=== PATIENT | male | born 1960 | race African-American/Black ===

== ENCOUNTER 2017-10-18 18:16 | Inpatient (IN) | payer OTHER ==
[~2017-10-18] VITALS: Ht 190.5 cm; Wt 98.2 kg
--- NOTE | 2017-10-18 18:56 | DIAGNOSTIC IMAGING REPORT ---
CHEST ONE VIEW PORTABLE HISTORY: 56 years-old Male CHEST PAIN acute atypical chest pain COMPARISON: None available TECHNIQUE: Portable AP view of the chest FINDINGS: Cardiomediastinal and hilar silhouettes are within normal limits. No pneumothorax, pleural effusion or overt pulmonary edema. Linear subsegmental bibasilar opacities are noted. The bones of the chest appear grossly intact. Degenerative changes are noted within the shoulders and spine. IMPRESSION: Linear subsegmental bibasilar opacities suggest atelectasis. The above report was generated using voice recognition software. It may contain grammatical, syntax or spelling errors. Electronically signed by: Daniel Concepcion M.D. 10/18/2017 6:55 PM Dictated Date/Time: 10/18/2017 6:54 PM
[2017-10-18] MEDS ORDERED: GI COCKTAIL PO STA (19:01)
[2017-10-18] MEDS ORDERED: SODIUM CHLORIDE 0.9% 1000ML 1,000 ML IV STA ×2 (19:01→20:09)
[2017-10-18 19:06] LABS: BASO % 0.5 %; BASO ABS # 0.05 K/uL (0-0.2); EOS % 0.3 %; EOS ABS # 0.03 K/uL (0-0.5); HEMATOCRIT 37.2 % (42-52); HEMOGLOBIN 13.3 g/dL (14.0-18.0); IG# 0.03 K/uL (0.00-0.02); LYMPH % 10.8 %; MEAN CELL VOLUME 86.7 fL (80-100); MEAN CORPUSCULAR HGB CONC 35.8 g/dl (32-36); MEAN PLATELET VOLUME 10.4 fL (7.4-10.4); MONO ABS # 0.41 K/uL (0.11-0.59); NEUT % 84.1 %; NEUT ABS # 8.61 K/uL (1.4-6.5); PLATELET COUNT 210 K/uL (130-400); RED CELL DISTRIBUTION WIDTH CV 14.2 % (11.5-14.5); RED CELL DISTRIBUTION WIDTH SD 44.7 fL (36.4-46.3); WHITE BLOOD COUNT 10.23 K/uL (4.8-10.8)
--- NOTE | 2017-10-18 19:06 | EMERGENCY ROOM VISIT NOTE ---
History Report prepared by Manoj: Chris Huffman Under the Supervision of: Dr. Patrick Snowden M.D. First contact with patient: 18:25 Chief Complaint: CHEST PAIN Stated Complaint: CHEST PAIN Nursing Triage Summary: pt states substernal chest pain with mid abdomen pain x 6 hours, pt denies cardiac hx at this time, pt states pain radiates to left shoulder. Pt denies asa and nitro helped with pain. History of Present Illness The patient is a 56 year old male who presents to the Emergency Room with complaints of persistent upper chest pain that radiates into the left side for the past 6 hours. He notes that the pain is a 5-6/10 in severity, and he describes it as a dull pressure. He notes that nothing has relived the pain including aspiring and nitro, and nothing makes the pain any better. He states that the pain is worse than his normal GERD. The patient is also complaining of left arm numbness that is intermittent and goes into his shoulder. He reports that he has been nauseous with a fever and chills, and he had diarrhea around 1600. He feels short of breath because he is unable to breathe due to the pressure in his chest. The patient has a history of hypertension, diabetes, migraines, and latent TB. He also has a family history of hypertension, diabetes , and his sister has had a heart attack. The patient denies any sick contacts. He denies any cough, congestion, and pain with urination. Source of History: patient Onset: 6 hours ago Position: chest (upper into the left) Symptom Intensity: 5-6/10 Quality: pressure, dull Timing: other (persistent) Associated Symptoms: + fevers, + chills, + SOB, + nausea, + diarrhea, No cough Note: Associated symptoms: Left arm numbness Review of Systems See HPI for pertinent positives and negatives. A total of ten systems were reviewed and were otherwise negative. Past Medical & Surgical Medical Problems: (1) Chest pain (2) DM (diabetes mellitus) (3) HTN (hypertension) (4) Migraine (5) Troponin I above reference range Family History Diabetes mellitus FH: NE (myocardial infarction) Hypertension Social History Smoking Status: Current Every Day Smoker Housing Status: other (intermediate) Occupation Status: other (prisoner) Current/Historical Medications Scheduled Isoniazid (Isoniazid), 900 MG PO 2XWK Lisinopril (Zestril), 10 MG PO DAILY Pyridoxine Hcl (Vitamin B 6), 150 MG PO 2XWK Allergies Coded Allergies: No Known Allergies (Unverified , 10/18/17) Physical Exam Vital Signs Date Time Temp Pulse Resp B/P (MAP) Pulse Ox O2 Delivery O2 Flow Rate FiO2 10/18/17 19:06 71 18 139/93 98 Room Air 10/18/17 18:20 Room Air 10/18/17 18:18 79 10/18/17 18:15 98 Room Air 10/18/17 18:15 37.0 58 23 135/93 98 Room Air Physical Exam GENERAL: Awake, alert, fatigued and uncomfortable appearing, in no distress HENT: Normocephalic, atraumatic. Oropharynx unremarkable. Dry mucous membranes. EYES: Normal conjunctiva. Sclera non-icteric. NECK: Supple. No nuchal rigidity. FROM. No JVD. RESPIRATORY: Clear to auscultation. CARDIAC: Regular rate, normal rhythm. Extremities warm and well perfused. Pulses equal. ABDOMEN: Soft, non-distended. No tenderness to palpation. No rebound or guarding. No masses. RECTAL: Deferred. MUSCULOSKELETAL: Chest examination reveals no tenderness. The back is symmetrical on inspection without obvious abnormality. There is no CVA tenderness to palpation. No joint edema. LOWER EXTREMITIES: Calves are equal size bilaterally and non-tender. No edema. No discoloration. NEURO: Normal sensorium. No sensory or motor deficits noted. SKIN: No rash or jaundice noted. Medical Decision & Procedures ER Provider Diagnostic Interpretation: Radiology results as stated below per my review and radiologist interpretation: CHEST ONE VIEW PORTABLE HISTORY: 56 years-old Male CHEST PAIN acute atypical chest pain COMPARISON: None available TECHNIQUE: Portable AP view of the chest FINDINGS: Cardiomediastinal and hilar silhouettes are within normal limits. No pneumothorax, pleural effusion or overt pulmonary edema. Linear subsegmental bibasilar opacities are noted. The bones of the chest appear grossly intact. Degenerative changes are noted within the shoulders and spine. IMPRESSION: Linear subsegmental bibasilar opacities suggest atelectasis. The above report was generated using voice recognition software. It may contain grammatical, syntax or spelling errors. Electronically signed by: Daniel Concepcion M.D. 10/18/2017 6:55 PM Dictated Date/Time: 10/18/2017 6:54 PM Laboratory Results 10/18/17 18:55 Red Blood Count 4.29, Mean Corpuscular Volume 86.7, Mean Corpuscular Hemoglobin 31.0, Mean Corpuscular Hemoglobin Concent 35.8, Mean Platelet Volume 10.4, Neutrophils (%) (Auto) 84.1, Lymphocytes (%) (Auto) 10.8, Monocytes (%) (Auto) 4.0, Eosinophils (%) (Auto) 0.3, Basophils (%) (Auto) 0.5, Neutrophils # (Auto) 8.61, Lymphocytes # (Auto) 1.10, Monocytes # (Auto) 0.41, Eosinophils # (Auto) 0.03, Basophils # (Auto) 0.05 10/18/17 18:55 Test 10/18/17 18:55 10/18/17 19:15 White Blood Count 10.23 K/uL (4.8-10.8) Red Blood Count 4.29 M/uL (4.7-6.1) Hemoglobin 13.3 g/dL (14.0-18.0) Hematocrit 37.2 % (42-52) Mean Corpuscular Volume 86.7 fL (80-100) Mean Corpuscular Hemoglobin 31.0 pg (25-34) Mean Corpuscular Hemoglobin Concent 35.8 g/dl (32-36) Platelet Count 210 K/uL (130-400) Mean Platelet Volume 10.4 fL (7.4-10.4) Neutrophils (%) (Auto) 84.1 % Lymphocytes (%) (Auto) 10.8 % Monocytes (%) (Auto) 4.0 % Eosinophils (%) (Auto) 0.3 % Basophils (%) (Auto) 0.5 % Neutrophils # (Auto) 8.61 K/uL (1.4-6.5) Lymphocytes # (Auto) 1.10 K/uL (1.2-3.4) Monocytes # (Auto) 0.41 K/uL (0.11-0.59) Eosinophils # (Auto) 0.03 K/uL (0-0.5) Basophils # (Auto) 0.05 K/uL (0-0.2) RDW Standard Deviation 44.7 fL (36.4-46.3) RDW Coefficient of Variation 14.2 % (11.5-14.5) Immature Granulocyte % (Auto) 0.3 % Immature Granulocyte # (Auto) 0.03 K/uL (0.00-0.02) Prothrombin Time 10.0 SECONDS (9.0-12.0) Prothromb Time International Ratio 1.0 (0.9-1.1) Activated Partial Thromboplast Time 29.5 SECONDS (21.0-31.0) Partial Thromboplastin Ratio 1.1 Anion Gap 5.0 mmol/L (3-11) Est Creatinine Clear Calc Drug Dose 87.8 ml/min Estimated GFR () 83.2 Estimated GFR (Non- 71.7 BUN/Creatinine Ratio 11.2 (10-20) Calcium Level 8.6 mg/dl (8.5-10.1) Magnesium Level 2.0 mg/dl (1.8-2.4) Total Bilirubin 0.1 mg/dl (0.2-1) Direct Bilirubin < 0.1 mg/dl (0-0.2) Aspartate Amino Transf (AST/SGOT) 12 U/L (15-37) Alanine Aminotransferase (ALT/SGPT) 20 U/L (12-78) Alkaline Phosphatase 72 U/L (45-117) Total Protein 7.5 gm/dl (6.4-8.2) Albumin 3.4 gm/dl (3.4-5.0) Lipase 89 U/L (73-393) Influenza Type A Antigen Neg for Influ A (NEG) Influenza Type B Antigen Neg for Influ B (NEG) Laboratory results reviewed by me Medications Administered Medications (Trade) Dose Ordered Sig/Jaime Route Start Time Stop Time Status Last Admin Dose Admin Sodium Chloride 1,000 ml @ 999 mls/hr Q1H1M STAT IV 10/18/17 19:01 10/18/17 20:01 DC 10/18/17 19:11 999 MLS/HR Famotidine (Pepcid Tab) 20 mg NOW ONCE PO 10/18/17 19:15 10/18/17 19:16 DC 10/18/17 19:11 20 MG Miscellaneous Medication (Gi Cocktail) 24 ml NOW STAT PO 10/18/17 19:01 10/18/17 19:03 DC 10/18/17 19:01 24 ML Aspirin (Aspirin Chew) 324 mg NOW STAT PO 10/18/17 20:09 10/18/17 20:10 DC 10/18/17 20:18 324 MG ECG Per My Interpretation Indication: chest pain Rate (beats per minute): 65 Rhythm: normal sinus Findings: no acute ischemic change, other (Normal axis) ED Course 1844: The patient was evaluated in room C10. A complete history and physical exam was performed. 2000: I revaluated the patient, and he was feeling better. I discussed the treatment plan with him, and he was agreeable. 2023: I discussed the patient with Dr. Barra[place] [facility] [place] he will evaluate the patient for further treatment. Medical Decision I reviewed the patient's past medical history, medications, and the nursing notes as described above. Differential diagnosis: Etiologies such as cardiac ischemia, aortic dissection, pulmonary embolism, pneumonia, pneumothorax, musculoskeletal, infections, pericarditis, myocarditis , esophageal rupture, gastrointestinal, as well as others were entertained. The patient is a 56-year-old gentleman currently an inmate with pmhx of HTN who presents emergency department with 6 hours of substernal chest pain, diaphoresis per hpi. On arrival patient is uncomfortable but no acute distress , afebrile stable vital signs. Of note, ?h/o latent TB. Patient reports h/o + PPD but then had negative CXR and was told he did not have TB. Patient was placed on droplet precaution until CXR complete and was clear. Patient's EKG is unremarkable without signs of acute ischemia. Initial troponin marginally elevated to 0.08 approximately 6 hours after onset of symptoms. Patient feeling complete resolution of symptoms after receiving Pepcid, GI cocktail, IV fluids which is reassuring. However, given the patient's positive troponin, in the setting of a family history and multiple cardiac risk factors including high blood pressure and smoking, the patient's heart score is 5, moderate risk, thus admission for r/o is reasonable, particularly considering the patient has no prior history of cardiac evaluations. Patient given ASA. Will defer heparin at this time and trend troponin. [facility] [place] Dr. Madi hodgson, who will evaluate the patient for admission. Medication Reconcilliation Current Medication List: was personally reviewed by me Blood Pressure Screening Patient's blood pressure: Normal blood pressure Consults Time Called: 2001 Consulting Physician: Dr. Barraza Returned Call: 2023 I discussed the patient with Dr. Barraza - [facility] [place] - he will evaluate the patient for further treatment. Impression Primary Impression: Elevated troponin Additional Impression: Substernal precordial chest pain Scribe Attestation The scribe's documentation has been prepared under my direction and personally reviewed by me in its entirety. I confirm that the note above accurately reflects all work, treatment, procedures, and medical decision making performed by me. Departure Information Dispostion Being Evaluated By Hospitalist Referrals Loretta VALENZUELA (PCP) Patient Instructions My [facility] Problem Qualifiers
[2017-10-18] MEDS ORDERED: LIDOCAINE HCL 2% VISC SOLN 20 ML UDC ONE (19:10)
[2017-10-18] MEDS ORDERED: ALUMINUM/MAGNESIUM SUSP 30 ML UDC ONE (19:10)
[2017-10-18] MEDS ORDERED: FAMOTIDINE 20 MG TAB PO ONE (19:15)
[2017-10-18 19:25] LABS: ALBUMIN 3.4 gm/dl (3.4-5.0); ALT/SGPT 20 U/L (12-78); BLOOD UREA NITROGEN 13 mg/dl (7-18); CALCIUM 8.6 mg/dl (8.5-10.1); CARBON DIOXIDE 26 mmol/L (21-32); CREATININE 1.15 mg/dl (0.60-1.40); GLUCOSE 177 mg/dl (70-99); LIPASE 89 U/L (73-393); POTASSIUM 4.2 mmol/L (3.5-5.1); SODIUM 135 mmol/L (136-145)
[2017-10-18 19:38] LABS: ALKALINE PHOSPHATASE 72 U/L (45-117); AST/SGOT 12 U/L (15-37); TOTAL PROTEIN 7.5 gm/dl (6.4-8.2)
[2017-10-18] MEDS ORDERED: ASPIRIN 81 MG CHEW PO STA (20:09)
[2017-10-18] MEDS ORDERED: ALUMINUM/MAGNESIUM/SIMETH (MAALOX MAX) 30 ML UDC PO PRN (20:15)
[2017-10-18] MEDS ORDERED: MoRPHine SULFATE 2 MG/ML CARP IV PRN (20:15)
[2017-10-18] MEDS ORDERED: POLYETHYLENE (MIRALAX) 17 GM PACK PO PRN (20:15)
[2017-10-18] MEDS ORDERED: MAGNESIUM HYDROXIDE SUSP 30 ML UDC PO PRN (20:15)
[2017-10-18] MEDS ORDERED: NITROGLYCERIN 0.4 MG SL PER TAB CHARGE SL PRN (20:15)
[2017-10-18] MEDS ORDERED: ACETAMINOPHEN 325 MG TAB PO PRN (20:15)
[2017-10-18] MEDS ORDERED: ONDANSETRON INJ 2 MG/ML 2 ML VIAL IV PRN (20:15)
[2017-10-18 20:25] LABS: INFLUENZA B ANTIGEN Neg for Influ B (NEG)
[2017-10-18] MEDS ORDERED: PYRI50TA77 PO (20:27)
[2017-10-18] MEDS ORDERED: ISON300T4 PO (20:27)
[2017-10-18] MEDS ORDERED: LISI-461 PO (20:27)
[2017-10-18 20:45] LABS: PTT PATIENT 29.5 SECONDS (21.0-31.0)
--- NOTE | 2017-10-18 20:51 | History and Physical ---
History & Physical Date & Time of Service: Oct 18, 2017 at 20:36 Chief Complaint: Chest Pain Primary Care Physician: Loretta VALENZUELA History of Present Illness Source: patient 56 y/o M Hx HTN, latent TB. Pt developed central CP radiating into his neck and L shoulder, accompanied by nausea, vomiting, SOB and diaphoresis. He resides in a local incarceration facility and was brought to the ER a few hours following onset of symptoms as his CP persisted. Initial labs are notable for a marginally elevated troponin. He is CP-free at the time of admission. The pt was diagnosed with latent TB 07/05 and was prescribed Isoniazid which he continues to comply with. Past Medical/Surgical History 1) HTN 2) (+) PPD 07/05 3) Smoker Family History Diabetes mellitus FH: PA (myocardial infarction) Hypertension Father is alive and well Mother due to breast CA Social History Smokes 10 cigarettes daily Smoking Status: Current Every Day Smoker Occupational Status: other (prisoner) Allergies Coded Allergies: No Known Allergies (Unverified , 10/18/17) Home Medications Scheduled Isoniazid (Isoniazid), 900 MG PO 2XWK Lisinopril (Zestril), 10 MG PO DAILY Pyridoxine Hcl (Vitamin B 6), 150 MG PO 2XWK Review of Systems Constitutional: + sweats, No fever, No chills Eyes: No worsening of vision ENT: No hearing loss, No unusual epistaxis, No nasal symptoms Respiratory: + shortness of breath, + dyspnea on exertion, + dyspnea at rest, No cough, No sputum, No wheezing Cardiovascular: + chest pain Abdomen: No pain, No nausea, No vomiting Musculoskeletal: No joint pain Genitourinary - Male: No hematuria, No dysuria Neurologic: No memory loss, No paralysis, No weakness Psychiatric: No depression symptoms Endocrine: No fatigue Hematologic / Lymphatic: No abnormal bleeding/bruising Integumentary: No rash Allergic / Immunologic: No environmental allergies Physical Exam Vital Signs Date Time Temp Pulse Resp B/P (MAP) Pulse Ox O2 Delivery O2 Flow Rate FiO2 10/18/17 19:06 71 18 139/93 98 Room Air 10/18/17 18:20 Room Air 10/18/17 18:18 79 10/18/17 18:15 98 Room Air 10/18/17 18:15 37.0 58 23 135/93 98 Room Air General Appearance: WD/WN, no apparent distress Head: normocephalic Eyes: normal inspection ENT: normal ENT inspection, pharynx normal Neck: supple, no JVD Respiratory/Chest: chest non-tender, lungs clear Cardiovascular: regular rate, rhythm, no edema, no gallop, + pertinent finding (an S2 click is heard) Abdomen/GI: normal bowel sounds, non tender, soft Back: normal inspection, no CVA tenderness Extremities/Musculoskelatal: normal inspection, no calf tenderness, normal capillary refill Neurologic/Psych: security flex officer II-XII nml as tested, no motor/sensory deficits, alert, oriented x 3 Skin: normal color Diagnostics Laboratory Results Results Past 24 Hours Test 10/18/17 18:55 10/18/17 19:15 Range/Units White Blood Count 10.23 4.8-10.8 K/uL Red Blood Count 4.29 4.7-6.1 M/uL Hemoglobin 13.3 14.0-18.0 g/dL Hematocrit 37.2 42-52 % Mean Corpuscular Volume 86.7 80-100 fL Mean Corpuscular Hemoglobin 31.0 25-34 pg Mean Corpuscular Hemoglobin Concent 35.8 32-36 g/dl Platelet Count 210 130-400 K/uL Mean Platelet Volume 10.4 7.4-10.4 fL Neutrophils (%) (Auto) 84.1 % Lymphocytes (%) (Auto) 10.8 % Monocytes (%) (Auto) 4.0 % Eosinophils (%) (Auto) 0.3 % Basophils (%) (Auto) 0.5 % Neutrophils # (Auto) 8.61 1.4-6.5 K/uL Lymphocytes # (Auto) 1.10 1.2-3.4 K/uL Monocytes # (Auto) 0.41 0.11-0.59 K/uL Eosinophils # (Auto) 0.03 0-0.5 K/uL Basophils # (Auto) 0.05 0-0.2 K/uL RDW Standard Deviation 44.7 36.4-46.3 fL RDW Coefficient of Variation 14.2 11.5-14.5 % Immature Granulocyte % (Auto) 0.3 % Immature Granulocyte # (Auto) 0.03 0.00-0.02 K/uL Sodium Level 135 136-145 mmol/L Potassium Level 4.2 3.5-5.1 mmol/L Chloride Level 105 98-107 mmol/L Carbon Dioxide Level 26 21-32 mmol/L Anion Gap 5.0 3-11 mmol/L Blood Urea Nitrogen 13 7-18 mg/dl Creatinine 1.15 0.60-1.40 mg/dl Est Creatinine Clear Calc Drug Dose 87.8 ml/min Estimated GFR () 83.2 Estimated GFR (Non- 71.7 BUN/Creatinine Ratio 11.2 10-20 Random Glucose 177 70-99 mg/dl Calcium Level 8.6 8.5-10.1 mg/dl Magnesium Level 2.0 1.8-2.4 mg/dl Total Bilirubin 0.1 0.2-1 mg/dl Direct Bilirubin < 0.1 0-0.2 mg/dl Aspartate Amino Transf (AST/SGOT) 12 15-37 U/L Alanine Aminotransferase (ALT/SGPT) 20 12-78 U/L Alkaline Phosphatase 72 45-117 U/L Troponin I 0.089 0-0.045 ng/ml Total Protein 7.5 6.4-8.2 gm/dl Albumin 3.4 3.4-5.0 gm/dl Lipase 89 73-393 U/L Influenza Type A Antigen Neg for Influ A NEG Influenza Type B Antigen Neg for Influ B NEG Diagnostic Radiology CXR: Linear subsegmental bibasilar opacities suggest atelectasis. Normal EKG Impression Assessment and Plan 56 y/o M Hx HTN, latent TB. Pt developed central CP radiating into his neck and L shoulder, accompanied by nausea, vomiting, SOB and diaphoresis. He resides in a local incarceration facility and was brought to the ER a few hours following onset of symptoms as his CP persisted. Initial labs are notable for a marginally elevated troponin. He is CP-free at the time of admission. The pt was diagnosed with latent TB 07/05 and was prescribed Isoniazid which he continues to comply with. 1) CP - elevated trop - placed on full-dose Heparin, ASA, Statin - HR would not likely tolerate a Bblocker. An echo and cardio consult are scheduled for AM 2) Latent TB - cont Isoniazid, B6 3) Mild anemia - may be due to latent TB or treatment - normocytic without evidence of bleeding - we will guiac a stool sample and trend Hb while he receives Heparin - additional workup can be completed as an outpt 4) Hyperglycemia - A1c pending 5) Smoker - does not display a great degree of enthusiasm regarding cessation at present. Full code - Heparin prophylaxis total time for this admit including review of labs, meds, imaging, records - discussion with pt and ER attending - 33 min Resuscitation Status VTE Prophylaxis Will order VTE Prophylaxis: Yes
[2017-10-18] MEDS ORDERED: HEPARIN SOD (PORCINE) 1000 UNIT/ML 10 ML VIAL ONE (20:54)
[2017-10-18] MEDS ORDERED: HEPARIN 25000 UNIT/500 ML D5W ONE (20:54)
[2017-10-18] MEDS: HEPARIN 25,000 UNIT/500ML D5W 500 ML IV PRN ×2 (21:18→21:44)
[2017-10-18] MEDS ORDERED: IV FLUIDS COMPLETED PRN (21:30)
[2017-10-18 21:47] VITALS: BP 154/82; PULSE 70; TEMP 37.1; O2SAT 100; BMI 27.9
[2017-10-18] MEDS ORDERED: SODIUM CHLORIDE 0.9% 1000ML 1,000 ML IV SCH (22:00)
[2017-10-18] MEDS ORDERED: NITROGLYCERIN 2% OINTMENT 30GM TUBE EXT SCH (22:30)
[2017-10-18] MEDS: ATORVASTATIN 40 MG TAB PO SCH (23:39)
[2017-10-19] VITALS (18 sets, daily range): BP systolic 102–149; BP diastolic 54–99; PULSE 52–79; TEMP 36.6–36.8; O2SAT 91–100; Ht 190.5 cm; Wt 98.2 kg
[2017-10-19 05:55] LABS: HEMATOCRIT 35.6 % (42-52); HEMOGLOBIN 12.6 g/dL (14.0-18.0); MEAN CELL VOLUME 86.4 fL (80-100); MEAN CORPUSCULAR HEMOGLOBIN 30.6 pg (25-34); MEAN CORPUSCULAR HGB CONC 35.4 g/dl (32-36); MEAN PLATELET VOLUME 10.2 fL (7.4-10.4); PLATELET COUNT 200 K/uL (130-400); RED CELL DISTRIBUTION WIDTH CV 14.1 % (11.5-14.5); RED CELL DISTRIBUTION WIDTH SD 44.4 fL (36.4-46.3); WHITE BLOOD COUNT 7.11 K/uL (4.8-10.8)
[2017-10-19 06:20] LABS: PTT PATIENT 80.5 SECONDS (21.0-31.0)
[2017-10-19] MEDS: LISINOPRIL 10 MG TAB PO SCH (08:28)
--- NOTE | 2017-10-19 08:32 | Family Medicine Progress Note ---
Progress Note Date of Service Oct 19, 2017. Subjective Pt evaluation today including: conversation w/ patient, physical exam, chart review, lab review, review of studies, conversation w/ [facility] consultant, review of inpatient medication list Patient lying comfortable, no current complaints of any discomfort, denies acute overnight events. He denies fevers/chills, headaches, CP, palpitations, dyspnea, abdominal pain, lower extremity swelling or rashes. ROS is unremarkable except as noted above. Objective Vital Signs Date Time Temp Pulse Resp B/P (MAP) Pulse Ox O2 Delivery O2 Flow Rate FiO2 10/19/17 04:12 100 Room Air 10/19/17 03:04 36.7 79 18 149/80 (103) 97 Room Air 10/19/17 00:00 100 Room Air 10/18/17 21:47 37.1 70 18 154/82 100 Room Air 10/18/17 20:52 60 18 158/95 97 Room Air 10/18/17 19:06 71 18 139/93 98 Room Air 10/18/17 18:20 Room Air 10/18/17 18:18 79 10/18/17 18:15 98 Room Air 10/18/17 18:15 37.0 58 23 135/93 98 Room Air Physical Exam General Appearance: WD/WN, no apparent distress Eyes: normal inspection ENT: hearing grossly normal Neck: supple, no JVD Respiratory/Chest: chest non-tender, lungs clear, normal breath sounds, no respiratory distress, no accessory muscle use Cardiovascular: regular rate, rhythm, no edema, no murmur Abdomen: normal bowel sounds, non tender, soft Extremities: no pedal edema, no calf tenderness, + pertinent finding ( significant clubbing of fingers and toes) Neurologic/Psychiatric: alert, normal mood/affect, oriented x 3 Skin: normal color, warm/dry, no rash Laboratory Results Results Past 24 Hours Test 10/18/17 18:55 10/18/17 19:15 10/18/17 22:53 10/19/17 05:43 Range/Units White Blood Count 10.23 7.11 4.8-10.8 K/uL Red Blood Count 4.29 4.12 4.7-6.1 M/uL Hemoglobin 13.3 12.6 14.0-18.0 g/dL Hematocrit 37.2 35.6 42-52 % Mean Corpuscular Volume 86.7 86.4 80-100 fL Mean Corpuscular Hemoglobin 31.0 30.6 25-34 pg Mean Corpuscular Hemoglobin Concent 35.8 35.4 32-36 g/dl Platelet Count 210 200 130-400 K/uL Mean Platelet Volume 10.4 10.2 7.4-10.4 fL Neutrophils (%) (Auto) 84.1 % Lymphocytes (%) (Auto) 10.8 % Monocytes (%) (Auto) 4.0 % Eosinophils (%) (Auto) 0.3 % Basophils (%) (Auto) 0.5 % Neutrophils # (Auto) 8.61 1.4-6.5 K/uL Lymphocytes # (Auto) 1.10 1.2-3.4 K/uL Monocytes # (Auto) 0.41 0.11-0.59 K/uL Eosinophils # (Auto) 0.03 0-0.5 K/uL Basophils # (Auto) 0.05 0-0.2 K/uL RDW Standard Deviation 44.7 44.4 36.4-46.3 fL RDW Coefficient of Variation 14.2 14.1 11.5-14.5 % Immature Granulocyte % (Auto) 0.3 % Immature Granulocyte # (Auto) 0.03 0.00-0.02 K/uL Prothrombin Time 10.0 9.0-12.0 SECONDS Prothromb Time International Ratio 1.0 0.9-1.1 Activated Partial Thromboplast Time 29.5 80.5 21.0-31.0 SECONDS Partial Thromboplastin Ratio 1.1 3.1 Sodium Level 135 136-145 mmol/L Potassium Level 4.2 3.5-5.1 mmol/L Chloride Level 105 98-107 mmol/L Carbon Dioxide Level 26 21-32 mmol/L Anion Gap 5.0 3-11 mmol/L Blood Urea Nitrogen 13 7-18 mg/dl Creatinine 1.15 0.60-1.40 mg/dl Est Creatinine Clear Calc Drug Dose 87.8 ml/min Estimated GFR () 83.2 Estimated GFR (Non- 71.7 BUN/Creatinine Ratio 11.2 10-20 Random Glucose 177 70-99 mg/dl Calcium Level 8.6 8.5-10.1 mg/dl Magnesium Level 2.0 1.8-2.4 mg/dl Total Bilirubin 0.1 0.2-1 mg/dl Direct Bilirubin < 0.1 0-0.2 mg/dl Aspartate Amino Transf (AST/SGOT) 12 15-37 U/L Alanine Aminotransferase (ALT/SGPT) 20 12-78 U/L Alkaline Phosphatase 72 45-117 U/L Troponin I 0.089 2.290 13.300 0-0.045 ng/ml Total Protein 7.5 6.4-8.2 gm/dl Albumin 3.4 3.4-5.0 gm/dl Lipase 89 73-393 U/L Influenza Type A Antigen Neg for Influ A NEG Influenza Type B Antigen Neg for Influ B NEG Estimated Average Glucose 126 mg/dl Hemoglobin A1c 6.0 4.5-5.6 % Triglycerides Level 70 0-150 mg/dl Cholesterol Level 149 0-200 mg/dl HDL Cholesterol 31 mg/dl LDL Cholesterol, Calculated 104 mg/dl VLDL Cholesterol, Calculated 14 mg/dl Cholesterol/HDL Ratio 4.8 Test 10/19/17 12:10 10/19/17 17:20 Range/Units Activated Partial Thromboplast Time 57.8 21.0-31.0 SECONDS Partial Thromboplastin Ratio 2.2 Microbiology Results 10/18/17 MRSA DNA Surveillance Screen - Final, Complete Specimen Negative for MRSA by DNA Probe Assessment and Plan 56 y/o M Hx HTN, latent TB admitted with central chest pain radiating into his neck and L shoulder, accompanied by nausea, vomiting, SOB and diaphoresis and marginally elevated troponin. Chest pain with elevated troponin - Troponin continues to increase 13.3 at last check, patient currently asymptomatic with no new EKG changes. Cardiology consulted, recs appreciated. Echo shows mild concentric left ventricular hypertrophy, with EF = 50-55%. Hypokinesis of mid to distal anterior and mid to distal anterolateral valdez and apical inferolateral valdez. Elevated right atrial pressure of 15 mmHg. Normal Left atrial pressures. Normal PA pressures at 30 mm/hg. HbA1c 6.0. Fasting lipid panel acceptable. - Continue aspirin, atorvastatin. HR will not tolerate beta blockade - Continue heparin drip - Cardiac catheterization on Saturday, make patient NPO Saturday at midnight - EKG PRN chest pain - Nitro paste if chest discomfort or elevated BP - Continue to monitor in telemetry Latent TB - diagnosed 06/2017 - Continue isoniazid and B6 supplementation Mild anemia - may be due to latent TB or treatment - normocytic without evidence of bleeding - Anemia work up including guiac stool test ordered - Trend H/H especially while on Heparin Smoker - does not display a great degree of enthusiasm regarding cessation at present. Tobacco abuse - cessation encouraged - Nicotine patch ordered Full code Continued [facility] stay due to: multiple IV medications needed Discharge planning: other (jail) Resident Tracking Resident Involvement: Resident Care Provided Care Provided: Adult Hospital Medicine History Resident Physician Supervision Note: I was present with Dr. Joseph during the history and exam. I discussed the case with the resident and agree with the findings and plan as documented in the note. Any exceptions or clarifications are listed here. Pt resting comfortably in bed without complaint of chest pain or shortness of breath. Nitro remains on chest from admission. S1/S2 nl RRR, CTAB. Echo w/ wall motion abnormalities, troponin to 13 this AM. Per cardiology recommendation, would benefit from cath on Saturday and medical management w/ heparin drip. Can re -apply nitro paste or plavix load with pain if needed.
[2017-10-19] MEDS ORDERED: PYRIDOXINE HCL 50 MG TAB PO SCH (09:00)
[2017-10-19] MEDS ORDERED: ISONIAZID 300 MG TAB PO SCH (09:00)
--- NOTE | 2017-10-19 10:20 | ECHOCARDIOGRAM REPORT ---
*NOTICE TO RECEIVING CONSTITUTION PARTY AGENCY This information is strictly Confidential and protected under [place] law. [place] law prohibits you from making any further disclosure of this information unless further disclosure is expressly permitted by the written consent of the person to whom it pertains or is authorized by law. A general authorization for the release of medical or other information is not sufficient for this purpose. Hospital accepts no responsibility if the information is made available to any other person, INCLUDING THE PATIENT. Interpretation Summary * Name: ASHELY THOMAS [id number] Study Date: 10/19/2017 06:47 AM BP: 149/80 mmHg * Patient Location: [facility] HR: 79 * : 1960 (M/d/yyyy) Gender: Male Height: 75 in * Age: 56 yrs Ethnicity: AA Weight: 222 lb * Ordering Physician: Jeff Barraza * Referring Physician: No Doctor, Assigned * Performed By: Amrita Bearden RDCS * * Reason For Study: Chest Pain, Elevated Troponins * BSA: 2.3 m2 * -- Conclusions -- * The left ventricle is normal in size. * There is mild concentric left ventricular hypertrophy. * Left ventricular systolic function is mildly reduced. * Ejection Fraction = 50-55%. * The mid to distal anterior and mid to distal anterolateral valdez and apical inferolateral valdez are hypokinetic. * The right ventricle is normal in size and function. * The right ventricular systolic function is normal as assessed by tricuspid annular plane systolic excursion (TAPSE) (normal >1.5 cm). * Dilated inferior vena cava with reduced collapsability with sniff indicates an elevated right atrial pressure of 15 mmHg * normal Left atrial pressures. * Normal PA pressures at 30 mm/hg Procedure Details * A complete two-dimensional transthoracic echocardiogram was performed (2D, M-mode, Doppler and color flow Doppler). Left Ventricle * The left ventricle is normal in size. * There is mild concentric left ventricular hypertrophy. * Ejection Fraction = 50-55%. * Left ventricular systolic function is mildly reduced. * The mid to distal anterior and mid to distal anterolateral valdez and apical inferolateral valdez are hypokinetic. Right Ventricle * The right ventricle is normal in size and function. * The right ventricular systolic function is normal as assessed by tricuspid annular plane systolic excursion (TAPSE) (normal >1.5 cm). Atria * The left atrial size is normal. * Right atrial size is normal. Mitral Valve * The mitral valve is grossly normal. * There is trace mitral regurgitation. Tricuspid Valve * The tricuspid valve is not well visualized, but is grossly normal. * There is trace tricuspid regurgitation. * Normal PA pressures at 30 mm/hg Aortic Valve * The aortic valve is trileaflet. Pulmonic Valve * The pulmonic valve is not well seen, but is grossly normal. * Trace pulmonic valvular regurgitation. Great Vessels * Mild aortic root dilatation. Pericardium/Pleural * There is no pericardial effusion. Great Vessels * Dilated inferior vena cava with reduced collapsability with sniff indicates an elevated right atrial pressure of 15 mmHg Left Ventricular Diastolic Function * normal Left atrial pressures. MMode 2D Measurements and Calculations IVSd 1.4 cm IVSs 1.4 cm LVIDd 5.1 cm LVIDs 3.8 cm LVPWd 1.2 cm LVPWs 1.5 cm IVS/LVPW 1.1 FS 25.9 % EDV(Teich) 126.2 ml ESV(Teich) 62.3 ml EF(Teich) 50.7 % EDV(cubed) 135.9 ml ESV(cubed) 55.2 ml EF(cubed) 59.4 % % IVS thick 5.6 % % LVPW thick 27.9 % LV mass(C)d 266.2 grams LV mass(C)dI 116.1 grams/m\S\2 LV mass(C)s 212.3 grams LV mass(C)sI 92.5 grams/m\S\2 SV(Teich) 63.9 ml SI(Teich) 27.9 ml/m\S\2 SV(cubed) 80.7 ml SI(cubed) 35.2 ml/m\S\2 Ao root diam 4.1 cm Ao root area 13.1 cm\S\2 ACS 2.4 cm LA dimension 3.5 cm LA/Ao 0.85 LVAd ap4 35.5 cm\S\2 LVLd ap4 9.2 cm EDV(MOD-sp4) 116.2 ml EDV(sp4-el) 116.5 ml LVAs ap4 22.1 cm\S\2 LVLs ap4 8.0 cm ESV(MOD-sp4) 56.9 ml ESV(sp4-el) 51.9 ml EF(MOD-sp4) 51.0 % EF(sp4-el) 55.5 % LVAd ap2 36.6 cm\S\2 LVLd ap2 9.5 cm EDV(MOD-sp2) 119.6 ml EDV(sp2-el) 119.6 ml LVAs ap2 24.1 cm\S\2 LVLs ap2 8.9 cm ESV(MOD-sp2) 60.9 ml ESV(sp2-el) 55.7 ml EF(MOD-sp2) 49.1 % EF(sp2-el) 53.4 % LVLd %diff 3.3 % EDV(MOD-bp) 119.6 ml LVLs %diff 9.5 % ESV(MOD-bp) 62.0 ml EF(MOD-bp) 48.2 % SV(MOD-sp4) 59.3 ml SI(MOD-sp4) 25.8 ml/m\S\2 SV(MOD-sp2) 58.8 ml SI(MOD-sp2) 25.6 ml/m\S\2 SV(MOD-bp) 57.6 ml SI(MOD-bp) 25.1 ml/m\S\2 SV(sp4-el) 64.6 ml SI(sp4-el) 28.2 ml/m\S\2 SV(sp2-el) 63.9 ml SI(sp2-el) 27.8 ml/m\S\2 Doppler Measurements and Calculations MV E max jorge luis 52.1 cm/sec MV A max jorge luis 37.0 cm/sec MV E/A 1.4 MV dec time 0.39 sec Ao V2 max 72.8 cm/sec Ao max PG 2.1 mmHg Ao max PG (full) 0.19 mmHg LV V1 max PG 1.9 mmHg LV V1 max 69.5 cm/sec PA V2 max 56.4 cm/sec PA max PG 1.3 mmHg TR max jorge luis 196.1 cm/sec
[2017-10-19] MEDS ORDERED: ASPIRIN 81 MG CHEW PO STA (11:57)
[2017-10-19 12:48] LABS: PTT PATIENT 57.8 SECONDS (21.0-31.0)
--- NOTE | 2017-10-19 12:54 | CARDIOLOGY CONSULTATION ---
DATE OF CONSULTATION: 10/19/2017 REQUESTING: Dr. Adrian Chaparro. INTERNET MARKETING CONSULTANT: Ted Hoffman D.O., [facility]. REASON FOR CONSULTATION: Elevated troponin, non-ST elevation myocardial infarction. Dear Dr. Chaparro, Thank you for requesting cardiology consultation on Reji with regards to his throat discomfort and subsequent elevated troponin. As you know, Reji is a pleasant 56-year-old prisoner. He describes chest discomfort that radiated into his neck and shoulder and between his shoulder blades with some mild nausea, shortness of breath and diaphoresis. He describes being in the cell at the time, he was not doing any activity. He notes in the days and weeks prior to the admission, he was chest pain free. He had no chest discomfort walking in the yard or walking to his cell. He is currently in the ICU. He is currently pain free. He denies any chest pain or chest pressure, shortness of breath, PND, orthopnea. Currently, he denies any palpitations, lightheadedness, dizziness, presyncope, syncope, lower extremity edema, symptoms of claudication. Denies any fevers, chills, sweats, cough, productive sputum. His appetite is stable. His weight has been stable. The rest of review of system otherwise negative. PAST MEDICAL HISTORY: 1. Positive PPD June 2017 with latent TB. 2. Diabetes mellitus type 2. 3. Hypertension. 4. Longstanding tobacco abuse. FAMILY HISTORY: Positive for diabetes, hypertension and prior [place]. His father is alive and well. Mom of breast cancer. He has a sister in her early 60s who has had a heart attack. SOCIAL HISTORY: He smokes a half a pack per day of cigarettes. He is currently a prisoner in the correctional institute. ALLERGIES: No known drug allergies. HOME MEDICATIONS: Isoniazid, lisinopril and paroxetine. INPATIENT MEDICATIONS: Reviewed in detail it. PHYSICAL EXAMINATION: GENERAL: He is awake, alert, oriented x3. He is in no acute distress. He is a well-appearing male. He is pain free. VITAL SIGNS: His heart rate is 52, respirations 18, blood pressure 139/95, his pulse ox 96% on room air. NECK: 2+ carotid upstrokes, no evidence of carotid bruits or venous pressure appeared normal. HEENT: Sclerae is anicteric. His hearing is normal. LUNGS: Clear to auscultation bilaterally. No rales, rhonchi or wheezing. HEART: Regular rate and rhythm. No appreciable murmurs, rubs or gallops. ABDOMEN: Soft, nontender, nondistended. Positive bowel sounds. EXTREMITIES: No clubbing, cyanosis or edema. PSYCHIATRIC: His affect appeared appropriate. NEUROLOGIC: He is awake, alert and oriented x3. LABORATORY STUDIES: Hemoglobin 12.6 with a platelet count of 200. Sodium 135, potassium 4.2, BUN 13, creatinine of 1.15. His initial troponin was 0.089, which then jose to 2.29 and 13.3 this morning. His LDL was 104, HDL 31, his total cholesterol was 149. His hemoglobin A1c was 6. His rapid flu is negative. IMAGING DATA: Chest x-ray: No significant cardiopulmonary disease. His EKG from the long-term reveals very subtle ST elevation in the inferior leads with reciprocal changes in V3-V6. EKG here reveals resolution of the ST elevation with nondiagnostic inferior Q-waves and nonspecific T-wave changes in the inferior leads. IMPRESSION: 1. Non-ST elevation myocardial infarction. 2. Diabetes mellitus type 2. 3. Hypertension. 4. Hyperlipidemia. 5. Ongoing tobacco abuse. As I discussed with Reji as well as the hospitalist service, he is currently pain free. He is on lisinopril, aspirin and statin therapy and a heparin drip. There is no room to add beta blockers given his relative bradycardia. As I discussed with Reji, I would recommend a cardiac catheterization to define his coronary anatomy. His echocardiogram is consistent with wall motion abnormalities involving the mid to distal anterior wall, mid to distal anterolateral wall and inferior lateral valdez with a low normal left ventricular systolic function. In light of that, he should have a cardiac catheterization assuming he remains stable on Saturday. I discussed risks and benefits of the procedure with him in detail and discussed the indications. If he were to have recurrence of his angina, nitroglycerin paste or nitro drip can be used and if necessary he can be Plavix loaded. He should remain on heparin through Saturday. All the patient's questions were answered in detail. All of his studies were reviewed in detail. We will continue to follow with you. Thank you for allowing us to participate in his care. LENO
[2017-10-19] MEDS: HEPARIN 25,000 UNIT/500ML D5W 500 ML IV PRN (14:08)
[2017-10-19] MEDS: ATORVASTATIN 40 MG TAB PO SCH (20:11)
[2017-10-20] VITALS (17 sets, daily range): BP systolic 110–138; BP diastolic 60–87; PULSE 57–78; TEMP 36.5–36.8; O2SAT 94–98
[2017-10-20 05:50] LABS: BASO % 0.6 %; BASO ABS # 0.04 K/uL (0-0.2); EOS ABS # 0.19 K/uL (0-0.5); HEMATOCRIT 37.3 % (42-52); HEMOGLOBIN 13.2 g/dL (14.0-18.0); IG# 0.02 K/uL (0.00-0.02); LYMPH % 33.4 %; LYMPH ABS # 2.15 K/uL (1.2-3.4); MEAN CELL VOLUME 86.3 fL (80-100); MEAN CORPUSCULAR HEMOGLOBIN 30.6 pg (25-34); MEAN CORPUSCULAR HGB CONC 35.4 g/dl (32-36); MEAN PLATELET VOLUME 10.7 fL (7.4-10.4); MONO % 9.5 %; MONO ABS # 0.61 K/uL (0.11-0.59); NEUT % 53.2 %; NEUT ABS # 3.42 K/uL (1.4-6.5); PLATELET COUNT 226 K/uL (130-400); RED CELL DISTRIBUTION WIDTH CV 14.1 % (11.5-14.5); RED CELL DISTRIBUTION WIDTH SD 44.5 fL (36.4-46.3); WHITE BLOOD COUNT 6.43 K/uL (4.8-10.8)
[2017-10-20 06:20] LABS: CALCIUM 8.4 mg/dl (8.5-10.1); CREATININE 1.05 mg/dl (0.60-1.40); POTASSIUM 3.8 mmol/L (3.5-5.1)
[2017-10-20 06:23] LABS: PTT PATIENT 57.2 SECONDS (21.0-31.0)
[2017-10-20] MEDS: NICOTINE 14 MG/24 HR TDSY TD SCH (08:14)
[2017-10-20] MEDS: ASPIRIN 81 MG CHEW PO SCH (08:14)
[2017-10-20] MEDS: LISINOPRIL 10 MG TAB PO SCH (08:14)
[2017-10-20] MEDS: HEPARIN 25,000 UNIT/500ML D5W 500 ML IV PRN (08:17)
--- NOTE | 2017-10-20 08:26 | Family Medicine Progress Note ---
Progress Note Date of Service Oct 20, 2017. Subjective Pt evaluation today including: conversation w/ patient, physical exam, chart review, lab review, review of studies, conversation w/ sap basis consultant, review of inpatient medication list Patient lying comfortable, no current complaints of any discomfort, denies acute overnight events. He denies fevers/chills, headaches, CP, palpitations, dyspnea, abdominal pain, lower extremity swelling or rashes. No issues with voiding has not had a BM yet. ROS is unremarkable except as noted above. Objective Vital Signs Date Time Temp Pulse Resp B/P (MAP) Pulse Ox O2 Delivery O2 Flow Rate FiO2 10/20/17 04:40 96 Room Air 10/20/17 04:02 66 114/60 (78) 95 10/20/17 04:00 57 94 10/20/17 03:01 58 138/85 (102) 98 10/20/17 03:00 78 94 10/20/17 02:01 75 119/67 (84) 95 10/20/17 02:00 69 95 10/20/17 01:01 71 131/61 (84) 96 10/20/17 01:00 64 97 10/20/17 00:14 96 Room Air 10/20/17 00:02 36.8 57 125/80 (95) 97 10/20/17 00:00 58 97 10/19/17 23:01 79 102/63 (76) 91 10/19/17 23:00 77 92 10/19/17 22:02 63 122/99 (107) 97 10/19/17 22:00 56 97 10/19/17 21:01 58 106/54 (71) 93 10/19/17 21:00 56 94 10/19/17 20:48 96 Room Air 10/19/17 20:01 36.8 64 119/86 (97) 94 10/19/17 20:00 63 96 10/19/17 19:02 67 124/88 (100) 94 10/19/17 19:00 57 95 10/19/17 16:00 96 Room Air 10/19/17 16:00 36.6 54 20 118/76 (90) 96 Room Air 10/19/17 12:01 97 Room Air 10/19/17 12:00 36.8 59 18 132/84 (100) 97 Room Air Physical Exam Notes: General Appearance: WD/WN, no apparent distress Eyes: normal inspection ENT: hearing grossly normal Neck: supple, no JVD Respiratory/Chest: chest non-tender, lungs clear, normal breath sounds, no respiratory distress, no accessory muscle use Cardiovascular: regular rate, rhythm, no edema, no murmur Abdomen: normal bowel sounds, non tender, soft Extremities: no pedal edema, no calf tenderness, peripheral pulses palpable and symmetric + pertinent finding (significant clubbing of fingers and toes) Neurologic/Psychiatric: alert, normal mood/affect, oriented x 3 Skin: normal color, warm/dry, no rash Laboratory Results Results Past 24 Hours Test 10/20/17 00:36 10/20/17 05:16 10/20/17 06:06 Range/Units Troponin I 5.610 0-0.045 ng/ml White Blood Count 6.43 4.8-10.8 K/uL Red Blood Count 4.32 4.7-6.1 M/uL Hemoglobin 13.2 14.0-18.0 g/dL Hematocrit 37.3 42-52 % Mean Corpuscular Volume 86.3 80-100 fL Mean Corpuscular Hemoglobin 30.6 25-34 pg Mean Corpuscular Hemoglobin Concent 35.4 32-36 g/dl Platelet Count 226 130-400 K/uL Mean Platelet Volume 10.7 7.4-10.4 fL Neutrophils (%) (Auto) 53.2 % Lymphocytes (%) (Auto) 33.4 % Monocytes (%) (Auto) 9.5 % Eosinophils (%) (Auto) 3.0 % Basophils (%) (Auto) 0.6 % Neutrophils # (Auto) 3.42 1.4-6.5 K/uL Lymphocytes # (Auto) 2.15 1.2-3.4 K/uL Monocytes # (Auto) 0.61 0.11-0.59 K/uL Eosinophils # (Auto) 0.19 0-0.5 K/uL Basophils # (Auto) 0.04 0-0.2 K/uL RDW Standard Deviation 44.5 36.4-46.3 fL RDW Coefficient of Variation 14.1 11.5-14.5 % Immature Granulocyte % (Auto) 0.3 % Immature Granulocyte # (Auto) 0.02 0.00-0.02 K/uL Activated Partial Thromboplast Time 57.2 21.0-31.0 SECONDS Partial Thromboplastin Ratio 2.2 Sodium Level 139 136-145 mmol/L Potassium Level 3.8 3.5-5.1 mmol/L Chloride Level 109 98-107 mmol/L Carbon Dioxide Level 26 21-32 mmol/L Anion Gap 4.0 3-11 mmol/L Blood Urea Nitrogen 14 7-18 mg/dl Creatinine 1.05 0.60-1.40 mg/dl Est Creatinine Clear Calc Drug Dose 96.1 ml/min Estimated GFR () 92.8 Estimated GFR (Non- 80.1 BUN/Creatinine Ratio 13.5 10-20 Random Glucose 99 70-99 mg/dl Calcium Level 8.4 8.5-10.1 mg/dl Iron Level 78 35-175 mcg/dl Total Iron Binding Capacity 221 250-450 mcg/dl Transferrin 175 200-360 mg/dl Transferrin % Saturation 32 20-50 % Ferritin 542.0 8.0-388.0 ng/ml Vitamin B12 Level 480 211-911 pg/mL Folate 15.27 >5.38 ng/mL Bedside Glucose 128 70-99 mg/dl Assessment and Plan 56 y/o M Hx HTN, latent TB admitted with central chest pain radiating into his neck and L shoulder, accompanied by nausea, vomiting, SOB and diaphoresis and marginally elevated troponin. Chest pain with elevated troponin - Troponin continues to increase 13.3 at last check, patient currently asymptomatic with no new EKG changes. Cardiology consulted, recs appreciated. Echo shows mild concentric left ventricular hypertrophy, with EF = 50-55%. Hypokinesis of mid to distal anterior and mid to distal anterolateral valdez and apical inferolateral valdez. Elevated right atrial pressure of 15 mmHg. Normal Left atrial pressures. Normal PA pressures at 30 mm/hg. HbA1c 6.0. Fasting lipid panel acceptable. - Continue aspirin, atorvastatin. HR will not tolerate beta blockade - Continue heparin drip - Cardiac catheterization on tomorrow, patient NPO at midnight - EKG PRN chest pain - Nitro paste if chest discomfort or elevated BP - Continue to monitor in telemetry Latent TB - diagnosed 06/2017 - Continue isoniazid and B6 supplementation Mild anemia - may be due to latent TB or treatment - normocytic without evidence of bleeding. Anemia work up consistent with anemia of chronic disease - Trend H/H especially while on Heparin Tobacco abuse - cessation encouraged - Nicotine patch ordered Full code Continued [facility] stay due to: other (awaiting catheterization) Discharge planning: other ([place] [facility] Resident Tracking Resident Involvement: Resident Care Provided Care Provided: Adult Hospital Medicine Assessment/Plan Resident Physician Supervision Note: I was present with Dr. Joseph during the history and exam. I discussed the case with the resident and agree with the findings and plan as documented in the note. Any exceptions or clarifications are listed here. Pt resting comfortably in bed without complaint of chest pain or shortness of breath. S1/S2 nl RRR, CTAB. Would benefit from cath on Saturday and medical management w/ heparin drip. Can re-apply nitro paste or plavix load with pain if needed.
--- NOTE | 2017-10-20 10:16 | Cardiology Follow-Up ---
Subjective General Date of Service: Oct 20, 2017. Pt evaluation today including: conversation w/ patient, chart review, lab review, review of studies History of Present Illness The patient is a 56 year old male Allergies Coded Allergies: No Known Allergies (Unverified , 10/18/17) Social History Smoking Status: Current Every Day Smoker Hx Tobacco Use In Past Year?: Yes Hx Alcohol Use - Type And Amou: No Hx Substance Use - Type And Am: No Problem List Medical Problems: (1) Elevated troponin Status: Acute (2) Substernal precordial chest pain Status: Acute Review of Systems Respiratory: No cough, No shortness of breath, No dyspnea at rest Cardiac: No chest pain, No edema, No palpitations Physical Exam Vital Signs Last Vital Signs Documentation Date Time Temp Pulse Resp B/P (MAP) Pulse Ox O2 Delivery O2 Flow Rate FiO2 10/20/17 08:00 95 Room Air 10/20/17 08:00 36.8 58 18 116/80 (92) Physical Exam Constitutional: General Apperance: heathly-appearing Level of Distress: NAD Lungs: Respiratory effort: no dyspnea Auscultation: breath sounds normal, no wheezing, no rales/crackles, no rhonchi Cardiovascular: Heart Auscultation: RRR, no murmurs, no rubs, no gallops Abdomen: Bowel Sounds: normal Inspection & Palpation: soft, non-distended, no tenderness, guarding & rebound Extremities: no edema Assessment and Plan Assessment and Plan 1) NSTEMI 2) HLD 3) Tobacco Abuse 4) HTN 5) Mild LV dysfunction Echo: * The left ventricle is normal in size. * There is mild concentric left ventricular hypertrophy. * Left ventricular systolic function is mildly reduced. * Ejection Fraction = 50-55%. * The mid to distal anterior and mid to distal anterolateral valdez and apical inferolateral valdez are hypokinetic. * The right ventricle is normal in size and function. * The right ventricular systolic function is normal as assessed by tricuspid annular plane systolic excursion (TAPSE) (normal >1.5 cm). * Plan left Cath and coronaries tomorrow NPO after MN Stay on meds No room for BB Risks and benfits discussed in detail including but not limited to [place]/CVA/ , RITCHIE, allergic Rxn to contrast, bleeding, infection, damage to fermoral or radial artery start IVF at 75 cc/hr after MN Laboratory Results Last 24 Hours Test 10/19/17 12:10 10/19/17 17:20 10/20/17 00:36 10/20/17 05:16 Activated Partial Thromboplast Time 57.8 SECONDS 57.2 SECONDS Partial Thromboplastin Ratio 2.2 2.2 Troponin I 8.550 ng/ml 5.610 ng/ml White Blood Count 6.43 K/uL Red Blood Count 4.32 M/uL Hemoglobin 13.2 g/dL Hematocrit 37.3 % Mean Corpuscular Volume 86.3 fL Mean Corpuscular Hemoglobin 30.6 pg Mean Corpuscular Hemoglobin Concent 35.4 g/dl Platelet Count 226 K/uL Mean Platelet Volume 10.7 fL Neutrophils (%) (Auto) 53.2 % Lymphocytes (%) (Auto) 33.4 % Monocytes (%) (Auto) 9.5 % Eosinophils (%) (Auto) 3.0 % Basophils (%) (Auto) 0.6 % Neutrophils # (Auto) 3.42 K/uL Lymphocytes # (Auto) 2.15 K/uL Monocytes # (Auto) 0.61 K/uL Eosinophils # (Auto) 0.19 K/uL Basophils # (Auto) 0.04 K/uL RDW Standard Deviation 44.5 fL RDW Coefficient of Variation 14.1 % Immature Granulocyte % (Auto) 0.3 % Immature Granulocyte # (Auto) 0.02 K/uL Sodium Level 139 mmol/L Potassium Level 3.8 mmol/L Chloride Level 109 mmol/L Carbon Dioxide Level 26 mmol/L Anion Gap 4.0 mmol/L Blood Urea Nitrogen 14 mg/dl Creatinine 1.05 mg/dl Est Creatinine Clear Calc Drug Dose 96.1 ml/min Estimated GFR () 92.8 Estimated GFR (Non- 80.1 BUN/Creatinine Ratio 13.5 Random Glucose 99 mg/dl Calcium Level 8.4 mg/dl Iron Level 78 mcg/dl Total Iron Binding Capacity 221 mcg/dl Transferrin 175 mg/dl Transferrin % Saturation 32 % Ferritin 542.0 ng/ml Vitamin B12 Level 480 pg/mL Folate 15.27 ng/mL Test 10/20/17 06:06 Bedside Glucose 128 mg/dl
[2017-10-20] MEDS: ATORVASTATIN 40 MG TAB PO SCH (21:41)
[2017-10-21] VITALS (17 sets, daily range): BP systolic 113–158; BP diastolic 70–100; PULSE 58–76; TEMP 36.4–37; O2SAT 94–100
[2017-10-21] MEDS ORDERED: SODIUM CHLORIDE 0.9% 1000ML 1,000 ML IV SCH
[2017-10-21] MEDS: HEPARIN 25,000 UNIT/500ML D5W 500 ML IV PRN (02:21)
--- NOTE | 2017-10-21 06:56 | Family Medicine Progress Note ---
Progress Note Date of Service Oct 21, 2017. Subjective Pt evaluation today including: conversation w/ patient Denies any further chest pain since . Report he has a hx of HTN and diabetes. Denies any new changes. NPO this morning before cath. Constitutional: No fever, No chills Respiratory: No cough, No sputum Cardiovascular: No chest pain All Other Systems: Reviewed and Negative Medications Current Inpatient Medications Medications (Trade) Dose Ordered Sig/Ajime Route Start Time Stop Time Status Last Admin Dose Admin Acetaminophen (Tylenol Tab) 650 mg Q4H PRN PO 10/18/17 20:15 11/17/17 20:14 Al Hydrox/Mg Hydrox/Simethicone (Maalox Max Susp) 15 ml Q4H PRN PO 10/18/17 20:15 11/17/17 20:14 Magnesium Hydroxide (Milk Of Magnesia Susp) 30 ml Q12H PRN PO 10/18/17 20:15 11/17/17 20:14 Ondansetron HCl (Zofran Inj) 4 mg Q6H PRN IV 10/18/17 20:15 11/17/17 20:14 Nitroglycerin (Nitrostat Tab) 0.4 mg UD PRN SL 10/18/17 20:15 11/17/17 20:14 Morphine Sulfate (MoRPHine SULFATE INJ) 2 mg Q30M PRN IV 10/18/17 20:15 11/01/17 20:14 Polyethylene (Miralax Powder Packet) 17 gm DAILY PRN PO 10/18/17 20:15 11/17/17 20:14 Atorvastatin Calcium (Lipitor Tab) 40 mg HS PO 10/18/17 22:30 11/17/17 22:29 10/20/17 21:41 40 MG Isoniazid (Isoniazid Tab) 900 mg WeSa@0900 PO 10/19/17 09:00 11/18/17 08:59 10/19/17 08:29 900 MG Lisinopril (Zestril Tab) 10 mg DAILY PO 10/19/17 09:00 11/18/17 08:59 10/21/17 07:57 10 MG Pyridoxine HCl (Vitamin B-6 Tab) 150 mg WeSa@0900 PO 10/19/17 09:00 11/18/17 08:59 10/19/17 08:28 150 MG Heparin Sodium/ Dextrose 500 ml @ 29 mls/hr [id number] PRN IV 10/18/17 21:15 11/17/17 21:14 10/21/17 02:21 29 MLS/HR Miscellaneous (Iv Fluids Completed) 1 ea PRN PRN N/A 10/18/17 21:30 10/18/18 21:29 Aspirin (Aspirin Chew) 81 mg DAILY PO 10/20/17 09:00 11/19/17 08:59 10/21/17 07:58 81 MG Nicotine (Nicoderm Cq 14MG Patch) 1 patch QAM TD 10/20/17 09:00 11/19/17 08:59 10/21/17 07:58 1 PATCH Miscellaneous (Remove Nicoderm Patch) 1 ea HS N/A 10/19/17 21:00 11/18/17 20:59 10/20/17 21:00 1 EA Eptifibatide 100 ml @ 16 mls/hr Q6H15M IV 10/21/17 10:45 10/21/17 18:33 Miscellaneous (Stop Order) 1 ea ONE ONCE N/A 10/21/17 18:33 10/21/17 18:34 Miscellaneous (Iv Fluids Completed) 1 ea PRN PRN N/A 10/21/17 11:45 10/21/18 11:44 Objective Vital Signs Date Time Temp Pulse Resp B/P (MAP) Pulse Ox O2 Delivery O2 Flow Rate FiO2 10/21/17 11:15 37.0 69 20 149/95 (113) 100 Room Air 10/21/17 11:13 Room Air 10/21/17 11:00 36.6 64 18 156/95 (115) 96 Room Air 10/21/17 11:00 36.6 69 18 158/93 (114) 95 Room Air 10/21/17 11:00 36.6 69 18 158/93 (114) 95 Room Air 10/21/17 10:45 36.6 64 18 156/95 (115) 96 Room Air 10/21/17 10:38 75 16 162/91 (114) 98 Room Air 10/21/17 10:33 Room Air 10/21/17 10:28 Room Air 10/21/17 10:23 72 16 167/101 (123) 96 Room Air 10/21/17 08:00 Room Air 10/21/17 07:41 36.6 58 16 121/73 (89) 96 Room Air 10/21/17 05:21 36.4 58 18 113/70 (84) 96 Room Air 10/21/17 04:00 Room Air 10/21/17 00:00 Room Air 10/20/17 23:30 36.8 65 20 120/80 (93) 96 Room Air 10/20/17 20:00 Room Air 10/20/17 18:38 36.7 63 18 137/87 (104) 98 Room Air 10/20/17 16:00 36.5 66 18 110/77 (88) 94 Room Air 10/20/17 16:00 94 Room Air Physical Exam General Appearance: WD/WN, no apparent distress Eyes: normal inspection, PERRL ENT: hearing grossly normal Neck: supple, no JVD Respiratory/Chest: lungs clear, normal breath sounds, no respiratory distress Cardiovascular: regular rate, rhythm, no murmur Abdomen: normal bowel sounds, non tender, soft Extremities: non-tender, no pedal edema Neurologic/Psychiatric: alert, normal mood/affect Skin: no rash Laboratory Results Last 24 Hours Test 10/21/17 06:08 10/21/17 09:45 10/21/17 10:00 10/21/17 10:20 White Blood Count 6.76 K/uL Red Blood Count 4.47 M/uL Hemoglobin 13.6 g/dL Hematocrit 38.4 % Mean Corpuscular Volume 85.9 fL Mean Corpuscular Hemoglobin 30.4 pg Mean Corpuscular Hemoglobin Concent 35.4 g/dl RDW Standard Deviation 43.7 fL RDW Coefficient of Variation 14.0 % Platelet Count 227 K/uL Mean Platelet Volume 11.1 fL Activated Partial Thromboplast Time 56.9 SECONDS Partial Thromboplastin Ratio 2.2 Kaolin Activated Coagulation Time 147 SECONDS 219 SECONDS 285 SECONDS Assessment and Plan 56 yo M, hx of latent TB, getting cardiac catheterization for evaluation of chest pain with increased troponin. Risk factors include age, gender, hypertension, & tobacco abuse. Chest pain w/ troponin elevation - Await results of cardiac cath today - Continue aspirin, statin, ES-I - Continue telemetry monitoring Latent tuberculosis - Diagnosed 06/2017 - Remains on Isonizaid and B6 Anemia of chronic disease - Monitor H&H Tobacco abuse - Nicotine patch provided VTE: Heparin drip Dispo: Eventually return to [facility] Code status: Full Resident Physician Supervision Note: I interviewed and examined the patient. Discussed with Dr. Watts and agree with findings and plan as documented in the note. Any exceptions or clarifications are listed here: None pt is doing well post cath and RCA stenting does not have any issues, wrist and distal hand issues on loss of sensation, cap refill is intact vitals are stable car is regular lungs are clear pt is s/p LHC and RCA stenting, will have on typical post cath protocol, aspirin , plavix, lipitor and lisinopril, b shyam avoided due to relatively low heart rate Documented By: Bull Edmondson Resident Tracking Resident Involvement: Resident Care Provided Care Provided: Adult Hospital Medicine
[2017-10-21 07:08] LABS: HEMATOCRIT 38.4 % (42-52); HEMOGLOBIN 13.6 g/dL (14.0-18.0); MEAN CELL VOLUME 85.9 fL (80-100); MEAN CORPUSCULAR HEMOGLOBIN 30.4 pg (25-34); MEAN CORPUSCULAR HGB CONC 35.4 g/dl (32-36); MEAN PLATELET VOLUME 11.1 fL (7.4-10.4); PLATELET COUNT 227 K/uL (130-400); RED CELL DISTRIBUTION WIDTH SD 43.7 fL (36.4-46.3); WHITE BLOOD COUNT 6.76 K/uL (4.8-10.8)
[2017-10-21 07:18] LABS: PTT PATIENT 56.9 SECONDS (21.0-31.0)
[2017-10-21] MEDS: LISINOPRIL 10 MG TAB PO SCH (07:57)
[2017-10-21] MEDS: ASPIRIN 81 MG CHEW PO SCH (07:58)
[2017-10-21] MEDS: NICOTINE 14 MG/24 HR TDSY TD SCH (07:58)
[2017-10-21] MEDS ORDERED: FENTANYL CITRATE INJ 50 MCG/1 ML 2 ML VIAL ONE (08:53)
[2017-10-21] MEDS ORDERED: MIDAZOLAM HCL 1 MG/ML 2ML VIAL ONE (08:53)
[2017-10-21] MEDS ORDERED: HEPARIN SOD (PORCINE) 1000 UNIT/ML 10 ML VIAL ONE (08:54)
[2017-10-21] MEDS ORDERED: EPTIFIBATIDE 0.75 MG/ML 75MG VIAL IV ONE (10:26)
[2017-10-21] MEDS ORDERED: EPTIFIBATIDE 2 MG/ML 10 ML VIAL IV ONE (10:26)
[2017-10-21] MEDS ORDERED: CLOPIDOGREL BISULFATE 300 MG TAB PO ONE (10:26)
[2017-10-21] MEDS ORDERED: EPTIFIBATIDE BOLUS / DRIP IV STA (10:33)
[2017-10-21] MEDS ORDERED: EPTIFIBATIDE INJ 75 MG PREMIXED IV SCH (10:45)
[2017-10-21] MEDS ORDERED: EPTIFIBATIDE IV ONE (10:45)
[2017-10-21] MEDS ORDERED: SODIUM CHLORIDE 0.45% 1000ML 1,000 ML IV SCH (10:45)
[2017-10-21] MEDS ORDERED: IV FLUIDS COMPLETED PRN (11:45)
--- NOTE | 2017-10-21 12:33 | CARDIAC CATH REPORT ---
REPORT OF CATHETERIZATION AND PERCUTANEOUS CORONARY INTERVENTION INDICATION: Unstable angina and non-ST elevated OK with transient noncritical ST elevation in inferior leads in a 56-year-old male, treated for hypertension, diabetes, hyperlipidemia, with no prior history of myocardial infarction. PROCEDURES PERFORMED: Left heart catheterization, coronary cineangiography, left ventriculography, PCI with drug-eluting stent x2 right coronary artery, radiological interpretation and supervision. METHOD: Upon arrival in the photo lab technician, the patient was prepped and draped in usual sterile fashion. After local infiltration with 2% lidocaine, a 6-Nicaraguan sheath was placed in the right radial artery. Intraarterial nitroglycerin was administered and the sheath was aspirated and flushed. A 5-Nicaraguan TIG catheter was advanced over wire under fluoroscopic guidance to the central circulation where it was aspirated and flushed. After confirmation of adequate waveform, it was advanced into the left main. Cineangiograms of the left coronary artery obtained and reviewed. The catheter was then used to engage the origin of the right coronary artery. Cineangiograms of the right coronary artery were obtained and reviewed. Catheter was removed from the body over wire and the sheath was aspirated and flushed. A 6-Nicaraguan RBU 4 guiding catheter was advanced over wire under fluoroscopic guidance to the central circulation where it was aspirated and flushed. After confirmation of adequate waveform, it was advanced into the right coronary artery. Cineangiograms of the right coronary artery were obtained and reviewed. Intravenous heparin was administered and titrated to an ACT on the order of 250 seconds. A 0.014-inch private pilot wire was advanced through the guiding catheter to the mid vessel where difficulty was encountered in wiring the trunk vessel. Wire was removed, guide was removed from the body over wire, and a 6-Nicaraguan RBU 3.5, then 6-Nicaraguan AL2, then 6-Nicaraguan JR 3.5 guiding catheter was advanced over wire under fluoroscopic guidance to the central circulation where it was aspirated and flushed. After confirmation of adequate waveform, it was advanced into the right coronary artery. Cineangiograms were obtained and reviewed with demonstration of total mid occlusion and hyperacute ST elevation. Intravenous Integrilin was administered by double bolus and maintenance infusion. A 0.014-inch private pilot wire was advanced through the guiding catheter across the area of stenosis to the apical PDA. A 2.0 Mini Trek 15 angioplasty catheter positioned in multiple locations in the mid right coronary artery, inflated to maximum pressure for less than 1 minute. Balloon was withdrawn. A 3.0 Xience 28 stent was positioned in mid right coronary artery "jailing." Two RV branches inflated to maximum pressure for less than 1 minute, balloon was withdrawn. A 3.5 Xience 12 stent was positioned immediately proximal to and overlapping the previously placed stent, inflated to maximum pressure for less than a minute. Balloon was withdrawn. A 4.0 NC Trek 15 was positioned in multiple locations in the stented segment, inflated to nominal to moderate pressure for less than 1 minute on each occasion. Final cineangiograms were obtained and the wire was removed from the coronary catheter. The guiding catheter was removed from the right coronary artery under fluoroscopic guidance from the body over wire and the sheath was aspirated and flushed. A 6-Nicaraguan pigtail was used to cross the aortic valve in retrograde fashion. Left ventricular end-diastolic pressure was measured. Left ventriculography was performed using 36 mL of contrast dye over 3 seconds less than 450 psi. Catheter was removed from the left ventricle to the aorta under continuous pressure monitoring, removed from body over wire and the sheath was aspirated and flushed. Closure device was applied over the right radial artery. Oral Plavix was administered. The patient returned to his room in good condition. COMPLICATION: None. FINDINGS: Left main is normal. Left circumflex is moderate to large in caliber with twin mid 50% stenosis. Circumflex, marginal and posterolateral branches are free of significant disease. Left anterior descending artery is at least moderate in caliber with luminal irregularities only. First diagonal branch is free of significant disease. The right coronary artery is moderate to large in caliber with a mid subtotal occlusion and mid to distal 70% stenosis. Posterior descending artery, the posterolateral branch is arising from the right coronary artery, all free of significant disease. Left ventricular end-diastolic pressure is normal. No significant aortic valve gradient is demonstrated. Left ventriculography demonstrates normal left ventricular size and function, ejection fraction estimated at 50%, inferior akinesis, moderate anterolateral hypokinesis. Final cineangiograms demonstrate no residual stenosis, no uncovered dissection, ALYSIA grade 3 flow throughout the right coronary artery. RECOMMENDATIONS: 1. Continue Integrilin for 8 hours. Okay to discontinue heparin. Add Plavix. 2. Routine medical therapy of risk factors for recurrent myocardial infarction per primary service.
[2017-10-21] MEDS ORDERED: ACETAMINOPHEN 500 MG TAB PO ONE (15:08)
[2017-10-21] MEDS ORDERED: ACETAMINOPHEN 500 MG TAB PO PRN (15:15)
[2017-10-21] MEDS ORDERED: Integrelin infusion --> STOP ORDER ONE (18:33)
[2017-10-21] MEDS: ATORVASTATIN 40 MG TAB PO SCH (20:13)
[2017-10-22 03:33] VITALS: BP 130/78; PULSE 82; TEMP 37; O2SAT 96
[2017-10-22 06:34] LABS: BASO % 0.3 %; BASO ABS # 0.02 K/uL (0-0.2); EOS % 1.5 %; EOS ABS # 0.12 K/uL (0-0.5); HEMATOCRIT 38.5 % (42-52); HEMOGLOBIN 13.7 g/dL (14.0-18.0); IG# 0.04 K/uL (0.00-0.02); LYMPH % 19.5 %; LYMPH ABS # 1.52 K/uL (1.2-3.4); MEAN CELL VOLUME 86.1 fL (80-100); MEAN CORPUSCULAR HEMOGLOBIN 30.6 pg (25-34); MEAN CORPUSCULAR HGB CONC 35.6 g/dl (32-36); MEAN PLATELET VOLUME 10.6 fL (7.4-10.4); MONO % 7.6 %; MONO ABS # 0.59 K/uL (0.11-0.59); NEUT % 70.6 %; NEUT ABS # 5.52 K/uL (1.4-6.5); PLATELET COUNT 230 K/uL (130-400); RED CELL DISTRIBUTION WIDTH CV 13.9 % (11.5-14.5); RED CELL DISTRIBUTION WIDTH SD 43.7 fL (36.4-46.3); WHITE BLOOD COUNT 7.81 K/uL (4.8-10.8)
[2017-10-22 06:45] LABS: PTT PATIENT 27.5 SECONDS (21.0-31.0)
[2017-10-22] MEDS: NICOTINE 14 MG/24 HR TDSY TD SCH (07:55)
[2017-10-22] MEDS: LISINOPRIL 10 MG TAB PO SCH (07:55)
[2017-10-22] MEDS: ASPIRIN 81 MG CHEW PO SCH (07:56)
[2017-10-22 07:57] VITALS: BP 103/68; PULSE 68; TEMP 37; O2SAT 95
[2017-10-22] MEDS ORDERED: CLOPIDOGREL BISULFATE 75 MG TAB PO SCH (09:00)
--- NOTE | 2017-10-22 09:01 | Cardiology Follow-Up ---
Subjective General Date of Service: Oct 22, 2017. Pt evaluation today including: conversation w/ patient, chart review, lab review, review of studies History of Present Illness The patient is a 56 year old male Allergies Coded Allergies: No Known Allergies (Unverified , 10/18/17) Social History Smoking Status: Current Every Day Smoker Hx Tobacco Use In Past Year?: Yes Hx Alcohol Use - Type And Amou: No Hx Substance Use - Type And Am: No Problem List Medical Problems: (1) Elevated troponin Status: Acute (2) Substernal precordial chest pain Status: Acute Review of Systems Respiratory: No cough, No shortness of breath, No dyspnea at rest Cardiac: No chest pain, No edema, No palpitations Physical Exam Vital Signs Last Vital Signs Documentation Date Time Temp Pulse Resp B/P (MAP) Pulse Ox O2 Delivery O2 Flow Rate FiO2 10/22/17 08:00 Room Air 10/22/17 07:57 37.0 68 16 103/68 (80) 95 Physical Exam Constitutional: General Apperance: heathly-appearing Level of Distress: NAD Lungs: Respiratory effort: no dyspnea Auscultation: breath sounds normal, no wheezing, no rales/crackles, no rhonchi Cardiovascular: Heart Auscultation: RRR, no murmurs, no rubs, no gallops Abdomen: Bowel Sounds: normal Inspection & Palpation: soft, non-distended, no tenderness, guarding & rebound Extremities: no edema Additional Comments: Brisk right radial pulse, both hands warm to touch Assessment and Plan Assessment and Plan 1) NSTEMI--POD #1 2 BHUMI stents placed to the mid RCA with subtotal occlusion of mid RCA--left circulation ok 2) HLD 3) Tobacco Abuse 4) HTN 5) Mild LV dysfunction Echo: * The left ventricle is normal in size. * There is mild concentric left ventricular hypertrophy. * Left ventricular systolic function is mildly reduced. * Ejection Fraction = 50-55%. * The mid to distal anterior and mid to distal anterolateral valdez and apical inferolateral valdez are hypokinetic. * The right ventricle is normal in size and function. * The right ventricular systolic function is normal as assessed by tricuspid annular plane systolic excursion (TAPSE) (normal >1.5 cm). * Hgb and PLt's stable No room for BB ES/Statin/ ASA 81mg/Plavix 75mg daily x 1 year Aggressive risk factor modification including smoking cessation ok back to skilled nursing Laboratory Results Last 24 Hours Test 10/21/17 09:45 10/21/17 10:00 10/21/17 10:20 10/22/17 05:56 Kaolin Activated Coagulation Time 147 SECONDS 219 SECONDS 285 SECONDS White Blood Count 7.81 K/uL Red Blood Count 4.47 M/uL Hemoglobin 13.7 g/dL Hematocrit 38.5 % Mean Corpuscular Volume 86.1 fL Mean Corpuscular Hemoglobin 30.6 pg Mean Corpuscular Hemoglobin Concent 35.6 g/dl Platelet Count 230 K/uL Mean Platelet Volume 10.6 fL Neutrophils (%) (Auto) 70.6 % Lymphocytes (%) (Auto) 19.5 % Monocytes (%) (Auto) 7.6 % Eosinophils (%) (Auto) 1.5 % Basophils (%) (Auto) 0.3 % Neutrophils # (Auto) 5.52 K/uL Lymphocytes # (Auto) 1.52 K/uL Monocytes # (Auto) 0.59 K/uL Eosinophils # (Auto) 0.12 K/uL Basophils # (Auto) 0.02 K/uL RDW Standard Deviation 43.7 fL RDW Coefficient of Variation 13.9 % Immature Granulocyte % (Auto) 0.5 % Immature Granulocyte # (Auto) 0.04 K/uL Activated Partial Thromboplast Time 27.5 SECONDS Partial Thromboplastin Ratio 1.1
[2017-10-22] MEDS ORDERED: ASPCH81 PO (09:04)
[2017-10-22] MEDS ORDERED: LPT40 PO (09:04)
[2017-10-22] MEDS ORDERED: PLV75 PO (09:04)
--- NOTE | 2017-10-22 09:08 | Discharge Summary ---
Discharge Summary Date of Service Oct 22, 2017. Discharge Summary Admission Date: Oct 21, 2017 at 10:33 Discharge Date: Oct 22, 2017 Discharge Disposition: Home ([facility]) Principal Diagnosis: Coronary artery disease, 2 stents placed Procedures: Cardiac cath 10/21/17 with stent placement Consultations: Dr Hoffman, [facility] Cardiology Medication Reconciliation New Medications: Aspirin (Aspirin Low Strength) 81 Mg Chew 81 MG PO DAILY for 30 Days, #30 TAB Atorvastatin (Lipitor) 40 Mg Tab 40 MG PO HS for 30 Days, #30 TAB Clopidogrel Bisulfate (Clopidogrel) 75 Mg Tab 75 MG PO QAM for 30 Days, #30 TAB Continued Medications: Isoniazid (Isoniazid) 300 Mg Tab 900 MG PO 2XWK TAKE 3 TABLETS (900mG) ORALLY WEEKLY ON SATURDAY AND SATURDAY Lisinopril (Zestril) 10 Mg Tab 10 MG PO DAILY, TAB Pyridoxine Hcl (Vitamin B 6) 50 Mg Tab 150 MG PO 2XWK TAKE 3 TABLETS (150MG) ON SATURDAY AND SATURDAY Discharge Exam Review of Systems: Constitutional: No fever, No chills, No sweats Eyes: No worsening of vision, No eye pain ENT: No hearing loss Respiratory: No cough, No sputum, No wheezing, No shortness of breath Cardiovascular: No chest pain, No orthopnea Abdomen: No pain, No nausea, No vomiting Musculoskeletal: No joint pain, No muscle pain Genitourinary - Male: No hematuria, No dysuria Neurologic: No memory loss, No paralysis, No weakness Psychiatric: No depression symptoms Endocrine: No fatigue Hematologic / Lymphatic: No abnormal bleeding/bruising Integumentary: No rash Physical Exam: General Appearance: WD/WN, no apparent distress Eyes: normal inspection, PERRL ENT: hearing grossly normal Neck: supple, no JVD Respiratory/Chest: lungs clear Cardiovascular: regular rate, rhythm, no murmur, normal peripheral pulses Abdomen / GI: non tender, soft Extremities: normal inspection, no pedal edema Neurologic/Psychiatric: alert, oriented x 3 Skin: no rash Hospital Course HPI (Per admitting provider Dr Barraza): 56 y/o M Hx HTN, latent TB. Pt developed central CP radiating into his neck and L shoulder, accompanied by nausea, vomiting, SOB and diaphoresis. He resides in a local incarceration facility and was brought to the ER a few hours following onset of symptoms as his CP persisted. Initial labs are notable for a marginally elevated troponin. He is CP-free at the time of admission. The pt was diagnosed with latent TB 07/05 and was prescribed Isoniazid which he continues to comply with. HOSPITAL COURSE: Reji had two drug eluting stents placed to the mid-RCA due to subtotal occlusion of the mid-RCA. His left circulation was ok. His stents were completed by [facility] [facility] Dr. Virgen, it is recommended he follow up in 1 mo with Cardiology, either Dr Hoffman at the [facility] group (who saw him in follow up) or the [facility] Cardiology group He should by on 75mg Plavix for a year, as well as Aspirin 81mg lifelong. He was bradycardic so there was no room to add a beta-shyam. He was continued on Lisinopril and Lipitor 40mg. Smoking cessation was recommended. Problem List: 1. NSTEMI - Stents placed 10/21/17 to mid-RCA with subtotal occlusion of mid-RCA - Continue aspirin & plavix x 1 year. No room for beta shyam due to bradycardia. - Follow up with Cards in 1 mo 2. Hyperlipidemia - Continue statin 3. Tobacco abuse - Recommend smoking cessation Echo: * The left ventricle is normal in size. * There is mild concentric left ventricular hypertrophy. * Left ventricular systolic function is mildly reduced. * Ejection Fraction = 50-55%. * The mid to distal anterior and mid to distal anterolateral valdez and apical inferolateral valdez are hypokinetic. * The right ventricle is normal in size and function. * The right ventricular systolic function is normal as assessed by tricuspid annular plane systolic excursion (TAPSE) (normal >1.5 cm). * Resident Physician Supervision Note: I interviewed and examined the patient. Discussed with Dr. Watts and agree with findings and plan as documented in the note. Any exceptions or clarifications are listed here: None Patient presented with coronary artery disease abnormal stress testing and pursued a cardiac catheterization showing right coronary artery stenosis with resultant stent placement patient is done well after procedure is released to the retirement he will be on risk reduction medications including Plavix and a statin his vitals are stable time of discharge his heart sounds regular his cath site is clean he has good sensation to his hand Documented By: Bull Edmondson Total Time Spent: Greater than 30 minutes This includes examination of the patient, discharge planning, medication reconciliation, and communication with other providers. Discharge Instructions Please refer to the electronic Patient Visit Report (Discharge Instructions) for additional information. Additional Copies To Ted Hoffman, DO; [facility], [facility] Resident Tracking Resident Involvement: Resident Care Provided Care Provided: Adult Hospital Medicine
--- NOTE | 2017-10-22 09:08 | Discharge Instructions ---
Discharge Instructions Date of Service Oct 22, 2017. Admission Reason for Admission: Chest Pain, Troponin I Above Reference Range Discharge Discharge Diagnosis / Problem: Cardiac stent placement Discharge Goals Goal(s): Improve disease control Activity Recommendations Activity Limitations: per Instructions/Follow-up section Lifting Limitations: no more than 25 pounds, gradually increase as tolerated Exercise/Sports Limitations: as tolerated Shower/Bathe: no limitations . Instructions / Follow-Up Instructions / Follow-Up Reji had two drug eluting stents placed to the mid-RCA due to subtotal occlusion of the mid-RCA. His left circulation was ok. His stents [facility] by [facility] [employer] Dr. Virgen, it is recommended he follow up in 1 mo with Cardiology, either Dr Hoffman at the [facility] group (who saw him in follow up) or the [facility] Cardiology group He should by on 75mg Plavix for a year, as well as Aspirin 81mg lifelong. He was bradycardic so there was no room to add a beta-shyam. He was continued on Lisinopril and Lipitor 40mg. Smoking cessation was recommended. Home Care: * Take your medications exactly as directed. Don't skip doses. * Remember that recovery after a heart attack takes time. Plan to rest for at lease 4-8 weeks while you recover. Then return to normal activity when your doctor says it's okay. * Ask your doctor about joining a heart rehabilitation program. * Tell your doctor if you are feeling depressed. Feelings of sadness are common after a heart attack, but it is important that you speak to someone if you are feeling overwhelmed by these feelings. * If you are having chest pain, call 911 for an ambulance. Do NOT drive yourself to the hospital. * Ask your family members to learn CPR. * Learn to take your own blood pressure and pulse. Keep a record of your results. Ask your doctor when you should seek emergency medical attention. He or she will tell you which blood pressure reading is dangerous. Lifestyle Changes: * Maintain a healthy weight. Get help to lose any extra pounds. * Cut back on salt. * Limit canned, dried, packaged, and fast foods. * Don't add salt to your food. * Season foods with herbs instead of salt when you cook. * Break the smoking habit. Enroll in a stop-smoking program to improve your chances of success. * Limit fatty foods. * Ask your doctor about having your lipid levels checked regularly. * Build up your activity according to your doctor's recommendation. * Ask your doctor when it's okay to resume sexual activity. * Tell your doctor about any erectile dysfunction (ED) medication you are taking. Some ED medications are not safe if you take certain heart medications. * Try to manage stress. Follow Up: It is important for you to keep your follow up appointments with your medical provider. Current Hospital Diet Patient's current hospital diet: AHA Diet (Heart Healthy), Diabetes Type 2 Diet Discharge Diet Recommended Diet: AHA Diet (Heart Healthy) Procedures Procedures Performed: 2 BHUMI stents placed to the mid RCA with subtotal occlusion of mid RCA--left circulation ok Pending Studies Studies pending at discharge: no Laboratory Results Hemoglobin A1c Test 10/18/17 22:53 Range/Units Estimated Average Glucose 126 mg/dl Hemoglobin A1c 6.0 H 4.5-5.6 % Lipid Panel Test 10/19/17 05:43 Range/Units Triglycerides Level 70 0-150 mg/dl Cholesterol Level 149 0-200 mg/dl HDL Cholesterol 31 mg/dl Cholesterol/HDL Ratio 4.8 LDL Cholesterol, Calculated 104 mg/dl Medical Emergencies . Who to Call and When: Medical Emergencies: If at any time you feel your situation is an emergency, please call 911 immediately. Call 911 immediately or go to your nearest Emergency Room if you experience any of the following: Warning Signs and Symptoms of a Heart Attack * Chest pain that is not relieved by medication * Shortness of breath . Non-Emergent Contact Non-Emergency issues call your: Primary Care Provider, [employer] . . "Provider Documentation" section prepared by Mary Jo Watts. . AMI Core Measures Reason no ASA as I/P: Treatment provided - N/A Reason no ASA at D/C: Treatment provided - N/A Reason no statin as I/P: Treatment provided - N/A Reason no statin at D/C: Treatment provided - N/A
[2017-10-22 09:29] VITALS: BP 103/68; PULSE 68; TEMP 37; O2SAT 95
== END 2017-10-22 12:00 | DRG 247 ==
LOC: C.EDC 18:16 → C.MSICU 20:19 → EDBEDREQ 20:23 → ENRESERV 20:47 → C.2T 10-20 18:34 → OBSVTOIN 10-21 10:33
PROVIDERS: ADMIT Internal Medicine; ATTEND Family Medicine
PROC: B2111ZZ Fluoroscopy of Multiple Coronary Arteries using Low Osmolar Contrast (ICD-10-PCS; principal; 2017-10-21 09:30)
PROC: 4A023N7 Measurement of Cardiac Sampling and Pressure, Left Heart, Percutaneous Approach (ICD-10-PCS; principal; 2017-10-21 09:30)
PROC: B2151ZZ Fluoroscopy of Left Heart using Low Osmolar Contrast (ICD-10-PCS; principal; 2017-10-21 09:30)
PROC: 027035Z Dilation of Coronary Artery, One Artery with Two Drug-eluting Intraluminal Devices, Percutaneous Approach (ICD-10-PCS; principal; 2017-10-21 09:30)
DX: I21.4 Non-ST elevation (NSTEMI) myocardial infarction (principal); I25.10 Atherosclerotic heart disease of native coronary artery without angina pectoris; R00.1 Bradycardia, unspecified; I11.9 Hypertensive heart disease without heart failure; E11.65 Type 2 diabetes mellitus with hyperglycemia; E78.5 Hyperlipidemia, unspecified; D63.8 Anemia in other chronic diseases classified elsewhere; R76.11 Nonspecific reaction to tuberculin skin test without active tuberculosis; F17.210 Nicotine dependence, cigarettes, uncomplicated; Z82.49 Family history of ischemic heart disease and other diseases of the circulatory system; Z79.899 Other long term (current) drug therapy

== ENCOUNTER 2017-11-01 09:39 | Observation (INO) | payer OTHER ==
[~2017-11-01] VITALS: Ht 190.5 cm; Wt 97.8 kg
[~2017-11-01 09:39] MED LIST: ASPCH81 PO; LPT40 PO; PLV75 PO
[2017-11-01] MEDS ORDERED: SODIUM CHLORIDE 0.9% 1000ML 1,000 ML IV STA (09:57)
[2017-11-01] MEDS ORDERED: ATOR-24 PO (10:19)
[2017-11-01] MEDS ORDERED: CLOP1TAB15 PO (10:19)
[2017-11-01] MEDS ORDERED: CETI10TA84 PO (10:19)
[2017-11-01] MEDS ORDERED: ASPCH81X PO (10:19)
--- NOTE | 2017-11-01 10:35 | DIAGNOSTIC IMAGING REPORT ---
CHEST ONE VIEW PORTABLE CLINICAL HISTORY: Altered mental status. Weakness. COMPARISON STUDY: Chest radiograph October 18, 2017. FINDINGS: There is no pneumothorax or pleural effusion. Linear bibasilar opacities favor atelectasis. There is mild upper mediastinal widening. Cardiac size is normal. Pulmonary vascularity is normal. There is no consolidation to suggest pneumonia. IMPRESSION: 1. Linear bibasilar opacities which favor atelectasis. No acute cardiopulmonary findings. 2. Mild upper mediastinal widening. This is nonspecific but statistically due to mediastinal fat or pulmonary vessels. Electronically signed by: Jalen Castellanos M.D. 11/01/2017 10:34 AM Dictated Date/Time: 11/01/2017 10:33 AM
[2017-11-01 10:47] LABS: BASO % 1.8 %; BASO ABS # 0.12 K/uL (0-0.2); EOS % 6.3 %; EOS ABS # 0.41 K/uL (0-0.5); HEMATOCRIT 40.3 % (42-52); HEMOGLOBIN 14.1 g/dL (14.0-18.0); LYMPH % 24.9 %; LYMPH ABS # 1.63 K/uL (1.2-3.4); MEAN CELL VOLUME 87.8 fL (80-100); MEAN CORPUSCULAR HEMOGLOBIN 30.7 pg (25-34); MEAN PLATELET VOLUME 10.3 fL (7.4-10.4); MONO % 11.3 %; MONO ABS # 0.74 K/uL (0.11-0.59); NEUT % 55.7 %; NEUT ABS # 3.65 K/uL (1.4-6.5); PLATELET COUNT 259 K/uL (130-400); RED CELL DISTRIBUTION WIDTH CV 13.6 % (11.5-14.5); RED CELL DISTRIBUTION WIDTH SD 44.2 fL (36.4-46.3); WHITE BLOOD COUNT 6.55 K/uL (4.8-10.8)
[2017-11-01 10:56] LABS: PTT PATIENT 26.5 SECONDS (21.0-31.0)
--- NOTE | 2017-11-01 10:58 | DIAGNOSTIC IMAGING REPORT ---
CT OF THE HEAD WITHOUT CONTRAST CLINICAL HISTORY: EVALUATE ALTERED MENTAL STATUS/WEAKNESS COMPARISON STUDY: No previous studies for comparison. CT DOSE: 844.54 mGycm TECHNIQUE: Helical axial images of the head were obtained without IV contrast. Automated exposure control was utilized for the study. A dose lowering technique was utilized adhering to the principles of ALARA. FINDINGS: No acute intracranial hemorrhage, midline shift or mass effect is present. Brain volume is normal. Ventricular system is normal. Basilar cisterns are patent. There are no extra-axial collections. Hernandez-white differentiation is maintained. There are no findings to suggest acute dural sinus thrombosis or acute territorial infarct. There are no significant calvarial abnormalities. Visualized portions of the sinuses and mastoid air cells are clear. IMPRESSION: No acute intracranial findings. Electronically signed by: Jalen Castellanos M.D. 11/01/2017 10:56 AM Dictated Date/Time: 11/01/2017 10:55 AM
[2017-11-01 11:03] LABS: ALBUMIN 3.6 gm/dl (3.4-5.0); ALT/SGPT 43 U/L (12-78); BLOOD UREA NITROGEN 10 mg/dl (7-18); CALCIUM 8.8 mg/dl (8.5-10.1); CARBON DIOXIDE 26 mmol/L (21-32); GLUCOSE 93 mg/dl (70-99); POTASSIUM 4.5 mmol/L (3.5-5.1); SODIUM 137 mmol/L (136-145)
[2017-11-01 11:15] LABS: ALKALINE PHOSPHATASE 81 U/L (45-117); AST/SGOT 18 U/L (15-37); PHOSPHORUS 3.4 mg/dl (2.5-4.9); TOTAL PROTEIN 7.7 gm/dl (6.4-8.2)
--- NOTE | 2017-11-01 12:10 | EMERGENCY ROOM VISIT NOTE ---
History Report prepared by Manoj: [place] Lira Under the Supervision of: Dr. Maxi Acosta M.D. First contact with patient: 09:47 Chief Complaint: SYNCOPE Stated Complaint: STENTS IN HEART History of Present Illness The patient is a 56 year old black male with a past medical history of NSTEMI s/ p stent placement, DM, and HTN who presents to the ED with a cc of a syncopal episode occurring 1.5 hours ago. Patient passed out after brushing his teeth and washing his face. He is unsure how long he was down for. He has no history of similar symptoms or seizures. Negative chest pain, incontinence, GUTIERREZ, or SOB. Eating and drinking normally. Urinating and defecating normally. Patient has a history of NSTEMI occurring 10 days ago. Source of History: patient Onset: 1.5 hours ago Symptom Intensity: unknown down time Quality: other (syncope) Timing: other (episode) Associated Symptoms: No headache, No chest pain, No SOB Note: Negative: incontinence. Review of Systems See HPI for pertinent positives and negatives. A total of ten systems were reviewed and were otherwise negative. Past Medical & Surgical Medical Problems: (1) Chest pain (2) DM (diabetes mellitus) (3) HTN (hypertension) (4) Migraine (5) NSTEMI, initial episode of care (6) Troponin I above reference range Family History Diabetes mellitus FH: PA (myocardial infarction) Hypertension Social History Smoking Status: Current Every Day Smoker Housing Status: other Occupation Status: other Current/Historical Medications Scheduled Aspirin (Aspirin Chewable), 81 MG PO DAILY Atorvastatin (Lipitor), 40 MG PO DAILY Cetirizine (Zyrtec), 10 MG PO DAILY Clopidogrel (Plavix), 75 MG PO DAILY Isoniazid (Isoniazid), 900 MG PO 2XWK Lisinopril (Zestril), 10 MG PO DAILY Pyridoxine Hcl (Vitamin B 6), 150 MG PO 2XWK Allergies Coded Allergies: No Known Allergies (Unverified , 11/01/17) Physical Exam Vital Signs Date Time Temp Pulse Resp B/P (MAP) Pulse Ox O2 Delivery O2 Flow Rate FiO2 11/01/17 11:58 83 16 122/83 95 Room Air 11/01/17 10:57 63 18 115/80 96 Room Air 11/01/17 10:24 64 13 114/69 98 Room Air 96 117/80 11/01/17 10:04 98 Room Air 11/01/17 09:59 90 11/01/17 09:54 76 13 119/86 98 Room Air 11/01/17 09:41 36.8 86 17 129/87 98 Room Air Physical Exam GENERAL: Awake, alert, well-appearing, NAD HENT: Normocephalic, atraumatic. EYES: Normal conjunctiva. Sclera non-icteric. NECK: Supple. No nuchal rigidity. FROM. RESPIRATORY: CTAB, no rhonchi, wheezing, crackles CARDIAC: RRR, no MRG ABDOMEN: Soft, NTND, BS+ MSK: No chest wall TTP, no LE edema NEURO: GCS 15, CN 2-12 intact, moves all 4s on command SKIN: No rash or jaundice noted. Medical Decision & Procedures ER Provider Diagnostic Interpretation: Radiology results as stated below per my review and radiologist interpretation: CT OF THE HEAD WITHOUT CONTRAST FINDINGS: No acute intracranial hemorrhage, midline shift or mass effect is present. Brain volume is normal. Ventricular system is normal. Basilar cisterns are patent. There are no extra-axial collections. Hernandez-white differentiation is maintained. There are no findings to suggest acute dural sinus thrombosis or acute territorial infarct. There are no significant calvarial abnormalities. Visualized portions of the sinuses and mastoid air cells are clear. IMPRESSION: No acute intracranial findings. Electronically signed by: Jalen Castellanos M.D. 11/01/2017 10:56 AM CHEST ONE VIEW PORTABLE FINDINGS: There is no pneumothorax or pleural effusion. Linear bibasilar opacities favor atelectasis. There is mild upper mediastinal widening. Cardiac size is normal. Pulmonary vascularity is normal. There is no consolidation to suggest pneumonia. IMPRESSION: 1. Linear bibasilar opacities which favor atelectasis. No acute cardiopulmonary findings. 2. Mild upper mediastinal widening. This is nonspecific but statistically due to mediastinal fat or pulmonary vessels. Electronically signed by: Jalen Castellanos M.D. 11/01/2017 10:34 AM Laboratory Results 11/01/17 10:34 Red Blood Count 4.59, Mean Corpuscular Volume 87.8, Mean Corpuscular Hemoglobin 30.7, Mean Corpuscular Hemoglobin Concent 35.0, Mean Platelet Volume 10.3, Neutrophils (%) (Auto) 55.7, Lymphocytes (%) (Auto) 24.9, Monocytes (%) (Auto) 11.3, Eosinophils (%) (Auto) 6.3, Basophils (%) (Auto) 1.8, Neutrophils # (Auto ) 3.65, Lymphocytes # (Auto) 1.63, Monocytes # (Auto) 0.74, Eosinophils # (Auto ) 0.41, Basophils # (Auto) 0.12 11/01/17 10:34 Test 11/01/17 10:34 White Blood Count 6.55 K/uL (4.8-10.8) Red Blood Count 4.59 M/uL (4.7-6.1) Hemoglobin 14.1 g/dL (14.0-18.0) Hematocrit 40.3 % (42-52) Mean Corpuscular Volume 87.8 fL (80-100) Mean Corpuscular Hemoglobin 30.7 pg (25-34) Mean Corpuscular Hemoglobin Concent 35.0 g/dl (32-36) Platelet Count 259 K/uL (130-400) Mean Platelet Volume 10.3 fL (7.4-10.4) Neutrophils (%) (Auto) 55.7 % Lymphocytes (%) (Auto) 24.9 % Monocytes (%) (Auto) 11.3 % Eosinophils (%) (Auto) 6.3 % Basophils (%) (Auto) 1.8 % Neutrophils # (Auto) 3.65 K/uL (1.4-6.5) Lymphocytes # (Auto) 1.63 K/uL (1.2-3.4) Monocytes # (Auto) 0.74 K/uL (0.11-0.59) Eosinophils # (Auto) 0.41 K/uL (0-0.5) Basophils # (Auto) 0.12 K/uL (0-0.2) RDW Standard Deviation 44.2 fL (36.4-46.3) RDW Coefficient of Variation 13.6 % (11.5-14.5) Immature Granulocyte % (Auto) 0.0 % Immature Granulocyte # (Auto) 0.00 K/uL (0.00-0.02) Prothrombin Time 10.3 SECONDS (9.0-12.0) Prothromb Time International Ratio 1.0 (0.9-1.1) Activated Partial Thromboplast Time 26.5 SECONDS (21.0-31.0) Partial Thromboplastin Ratio 1.0 Anion Gap 7.0 mmol/L (3-11) Est Creatinine Clear Calc Drug Dose 89.8 ml/min Estimated GFR () 79.0 Estimated GFR (Non- 68.1 BUN/Creatinine Ratio 8.4 (10-20) Calcium Level 8.8 mg/dl (8.5-10.1) Phosphorus Level 3.4 mg/dl (2.5-4.9) Magnesium Level 2.1 mg/dl (1.8-2.4) Total Bilirubin 0.3 mg/dl (0.2-1) Direct Bilirubin < 0.1 mg/dl (0-0.2) Aspartate Amino Transf (AST/SGOT) 18 U/L (15-37) Alanine Aminotransferase (ALT/SGPT) 43 U/L (12-78) Alkaline Phosphatase 81 U/L (45-117) Total Protein 7.7 gm/dl (6.4-8.2) Albumin 3.6 gm/dl (3.4-5.0) Thyroid Stimulating Hormone (TSH) 1.680 uIu/ml (0.300-4.500) Laboratory results reviewed by me Medications Administered Medications (Trade) Dose Ordered Sig/Jaime Route Start Time Stop Time Status Last Admin Dose Admin Sodium Chloride 1,000 ml @ 999 mls/hr Q1H1M STAT IV 11/01/17 09:57 11/01/17 10:57 DC 11/01/17 10:22 999 MLS/HR ECG Per My Interpretation Indication: syncope Rate (beats per minute): 73 Rhythm: normal sinus Findings: T-wave inversion (single, lead 3), other (Normal intervals. Normal axis. ) Comparison ECG Date: October 21, 2017 Change: no significant change ED Course 0958: The patient was evaluated in room C12B. A complete history and physical exam was performed. 1200: Upon reexamination, the patient was resting comfortably. I discussed the test results and treatment plan with him. The patient will be evaluated for further management. Medical Decision The patient is a 56 year old black male with a past medical history of NSTEMI s/ p stent placement, DM, and HTN who presents to the ED with a cc of a syncopal episode occurring 1.5 hours ago. Differential diagnosis: Etiologies such as vasovagal event, infection, hypoglycemia, electrolyte abnormalities, cardiac sources, intracerebral event, toxicologic, neurologic, as well as others were entertained. Prior records were reviewed. Patient was recently admitted for an an STEMI during which time he did have 2 stents placed to the RCA. Patient was discharged. Patient was seen and evaluated at the bedside. Patient describes a syncopal event. Patient states he was brushing his teeth after having taken a shower. Patient denies any sudden change in positions. Patient denies any palpitations , feeling flushed, warmth, or nausea. Patient is unsure as to whether he struck his head. Patient denies any tongue biting or bowel or bladder incontinence. Less likely seizure. Patient denies any symptomatic complaints including headache, neck pain, chest pain, shortness breath, abdominal pain, nausea, vomiting. Patient did have blood work completed, EKG, troponin, chest x-ray and CT of the brain. Patient CT brain negative acute. Chest x-ray clear. Patient's blood work unremarkable. Patient's EKG does show single TWI in lead III but no acute changes and no evidence of ischemia. I discussed the patient with the on-call shipping and receiving clerk given the patient's recent cardiac catheterization and stent placement. We did discuss possibility of it arrhythmia being present which may have caused the syncope. Given this in the recent and STEMI in stent placement recommended observation and further evaluation treatment. Hospitalist was paged. They agreed to further evaluate and treat the patient. Medication Reconcilliation Current Medication List: was personally reviewed by me Blood Pressure Screening Patient's blood pressure: Normal blood pressure Blood pressure disposition: Did not require urgent referral Consults Time Called: 1130 Consulting Physician: Dr. Bhatti - Cardiology Returned Call: [phone] Discussed the patient's case. Dr. Bhatti recommends medical admission for further evaluation of the patient's symptoms. Additional Consults: Time Called: 1158 Consulted Physician: Dr. Hernandez - [facility] [place] Returned Call: 1100 Additional Comments: Discussed the patient's case. The patient will be evaluated for further treatment and disposition. Impression Primary Impression: Syncope Scribe Attestation The scribe's documentation has been prepared under my direction and personally reviewed by me in its entirety. I confirm that the note above accurately reflects all work, treatment, procedures, and medical decision making performed by me. Departure Information Dispostion Being Evaluated By Hospitalist Referrals Loretta VALENZUELA (PCP) Patient Instructions My [facility] Problem Qualifiers Primary Impression: Syncope Syncope type: unspecified Qualified Codes: R55 - Syncope and collapse
[2017-11-01] MEDS ORDERED: NITROGLYCERIN 0.4 MG SL PER TAB CHARGE SL PRN (12:45)
[2017-11-01] MEDS ORDERED: ACETAMINOPHEN 325 MG TAB PO PRN (12:45)
[2017-11-01] MEDS ORDERED: ONDANSETRON INJ 2 MG/ML 2 ML VIAL IV PRN (12:45)
[2017-11-01] MEDS ORDERED: MAGNESIUM HYDROXIDE SUSP 30 ML UDC PO PRN (12:45)
[2017-11-01] MEDS ORDERED: ASPIRIN 81 MG CHEW PO ONE (12:48)
[2017-11-01] MEDS ORDERED: LISINOPRIL 10 MG TAB PO ONE (12:48)
[2017-11-01] MEDS ORDERED: ATORVASTATIN 20 MG TAB PO ONE (12:48)
[2017-11-01] MEDS ORDERED: CLOPIDOGREL BISULFATE 75 MG TAB PO ONE (12:48)
[2017-11-01] MEDS ORDERED: CETIRIZINE HCL 10 MG TAB PO ONE (12:48)
--- NOTE | 2017-11-01 12:55 | History and Physical ---
History & Physical Date & Time of Service: Nov 01, 2017 at 12:44 Chief Complaint: Stents In Heart Primary Care Physician: Loretta VALENZUELA History of Present Illness Source: patient 56 y/o M c/o syncopal episode. Pt states he had a normal day yesterday and woke up feeling his usual. He took a shower and was standing, brushing his teeth when he had a sudden "doty to my head, like when you stand up too fast" and suddenly passed out. This happened around 7:15a. This has never happened to him prior. Pt denies fever, SOB, chest pain, abd pain, n/v/c/d, LE pain or swelling before or after the episode. He feels fine at this time. Pt had a cath on 10/22 with 2 RCA stents placed with Dr. Steele at [facility]. He states that the only difference he has felt "is a sudden whoosh like everything is pumping when I take that med". He cannot describe this further. It is a different sensation than he felt this morning. He has not taken his AM meds yet. He was noted to be bradycardic at that time and therefore beta blockers were not started. Past Medical/Surgical History Medical Problems: (1) Chest pain (2) DM (diabetes mellitus) (3) Elevated troponin (4) HTN (hypertension) (5) Migraine (6) NSTEMI, initial episode of care (7) Substernal precordial chest pain (8) Troponin I above reference range Family History Family history was reviewed; no changes noted. Denies hx of syncope Social History Smoking Status: Current Every Day Smoker (has tapered down to 4 cigarettes per day since his MT) Alcohol Use: none Drug Use: none Occupational Status: other Allergies Coded Allergies: No Known Allergies (Unverified , 11/01/17) Home Medications Scheduled Aspirin (Aspirin Chewable), 81 MG PO DAILY Atorvastatin (Lipitor), 40 MG PO DAILY Cetirizine (Zyrtec), 10 MG PO DAILY Clopidogrel (Plavix), 75 MG PO DAILY Isoniazid (Isoniazid), 900 MG PO 2XWK Lisinopril (Zestril), 10 MG PO DAILY Pyridoxine Hcl (Vitamin B 6), 150 MG PO 2XWK Review of Systems Pertinent positives and negatives reviewed in HPI--all others negative Physical Exam Vital Signs Date Time Temp Pulse Resp B/P (MAP) Pulse Ox O2 Delivery O2 Flow Rate FiO2 11/01/17 11:58 83 16 122/83 95 Room Air 11/01/17 10:57 63 18 115/80 96 Room Air 11/01/17 10:24 64 13 114/69 98 Room Air 96 117/80 11/01/17 10:04 98 Room Air 11/01/17 09:59 90 11/01/17 09:54 76 13 119/86 98 Room Air 11/01/17 09:41 36.8 86 17 129/87 98 Room Air General Appearance: WD/WN, no apparent distress Head: normocephalic, atraumatic Eyes: normal inspection, sclerae normal Respiratory/Chest: normal breath sounds, no respiratory distress Cardiovascular: regular rate, rhythm, no edema Abdomen/GI: non tender, soft Extremities/Musculoskelatal: no calf tenderness, no pedal edema Neurologic/Psych: alert, normal mood/affect, oriented x 3 Skin: normal color, warm/dry Diagnostics Laboratory Results Results Past 24 Hours Test 11/01/17 10:17 11/01/17 10:34 Range/Units Bedside Glucose 101 70-99 mg/dl White Blood Count 6.55 4.8-10.8 K/uL Red Blood Count 4.59 4.7-6.1 M/uL Hemoglobin 14.1 14.0-18.0 g/dL Hematocrit 40.3 42-52 % Mean Corpuscular Volume 87.8 80-100 fL Mean Corpuscular Hemoglobin 30.7 25-34 pg Mean Corpuscular Hemoglobin Concent 35.0 32-36 g/dl Platelet Count 259 130-400 K/uL Mean Platelet Volume 10.3 7.4-10.4 fL Neutrophils (%) (Auto) 55.7 % Lymphocytes (%) (Auto) 24.9 % Monocytes (%) (Auto) 11.3 % Eosinophils (%) (Auto) 6.3 % Basophils (%) (Auto) 1.8 % Neutrophils # (Auto) 3.65 1.4-6.5 K/uL Lymphocytes # (Auto) 1.63 1.2-3.4 K/uL Monocytes # (Auto) 0.74 0.11-0.59 K/uL Eosinophils # (Auto) 0.41 0-0.5 K/uL Basophils # (Auto) 0.12 0-0.2 K/uL RDW Standard Deviation 44.2 36.4-46.3 fL RDW Coefficient of Variation 13.6 11.5-14.5 % Immature Granulocyte % (Auto) 0.0 % Immature Granulocyte # (Auto) 0.00 0.00-0.02 K/uL Prothrombin Time 10.3 9.0-12.0 SECONDS Prothromb Time International Ratio 1.0 0.9-1.1 Activated Partial Thromboplast Time 26.5 21.0-31.0 SECONDS Partial Thromboplastin Ratio 1.0 Sodium Level 137 136-145 mmol/L Potassium Level 4.5 3.5-5.1 mmol/L Chloride Level 104 98-107 mmol/L Carbon Dioxide Level 26 21-32 mmol/L Anion Gap 7.0 3-11 mmol/L Blood Urea Nitrogen 10 7-18 mg/dl Creatinine 1.20 0.60-1.40 mg/dl Est Creatinine Clear Calc Drug Dose 89.8 ml/min Estimated GFR () 79.0 Estimated GFR (Non- 68.1 BUN/Creatinine Ratio 8.4 10-20 Random Glucose 93 70-99 mg/dl Calcium Level 8.8 8.5-10.1 mg/dl Phosphorus Level 3.4 2.5-4.9 mg/dl Magnesium Level 2.1 1.8-2.4 mg/dl Total Bilirubin 0.3 0.2-1 mg/dl Direct Bilirubin < 0.1 0-0.2 mg/dl Aspartate Amino Transf (AST/SGOT) 18 15-37 U/L Alanine Aminotransferase (ALT/SGPT) 43 12-78 U/L Alkaline Phosphatase 81 45-117 U/L Troponin I 0.019 0-0.045 ng/ml Total Protein 7.7 6.4-8.2 gm/dl Albumin 3.6 3.4-5.0 gm/dl Thyroid Stimulating Hormone (TSH) 1.680 0.300-4.500 uIu/ml Diagnostic Radiology CXR neg for acute CT head neg for acute Normal EKG Impression Assessment and Plan 56 y/o M who was admitted for observation on 11/01 s/p syncopal episode Syncope: no prior hx of same ACS vs arrhythmia vs issues with stent causing arrhythmia Initial trop neg, serials pending EKG neg, repeat in AM ECHO on last admission noted for 50-55% EF and areas of hypokinesis, will hold on repeat for now unless there is elevation in trop or noted arrhythmia Continue asp/plavix Cath 3/6 s/p RCA stents x2 Lipids and A1c checked on last admission, will not repeat TSH, CBC, PRP WNL DM: no home meds A1c 6.0 last admission Hyperlipidemia: in the setting of recent MT Continue statin Tobacco use: has been tapering off Will hold on nicotine patch given pt is <2 weeks from NSTEMI Other: Full code AHA diet SCDs for DVT proph given likely short duration of admission Resuscitation Status VTE Prophylaxis Will order VTE Prophylaxis: Yes
[2017-11-01 14:00] VITALS: BP 107/77; PULSE 64; TEMP 37; O2SAT 97; Ht 190.5 cm; Wt 97.8 kg
[2017-11-01] MEDS ORDERED: IV FLUIDS COMPLETED PRN (14:15)
[2017-11-01 16:15] VITALS: BP_SYST 119; BP_SYST 133; BP_SYST 137; BP_DIAS 74; BP_DIAS 94; BP_DIAS 96; PULSE 63; PULSE 75; PULSE 95; TEMP 36.5; O2SAT 99
[2017-11-01] MEDS ORDERED: LISI-461 PO (20:27)
[2017-11-01] MEDS ORDERED: PYRI50TA77 PO (20:27)
[2017-11-01] MEDS ORDERED: ISON300T4 PO (20:27)
[2017-11-01 20:36] VITALS: BP 121/83; PULSE 83; TEMP 37.1; O2SAT 97
[2017-11-01 23:20] VITALS: BP_SYST 124; BP_SYST 126; BP_SYST 132; BP_DIAS 84; BP_DIAS 87; BP_DIAS 89; PULSE 73; PULSE 74; PULSE 88; TEMP 37.3; O2SAT 98
[2017-11-02] VITALS (8 sets, daily range): BP systolic 96–123; BP diastolic 64–96; PULSE 70–113; TEMP 36.5–37; O2SAT 95–98
[2017-11-02] MEDS: ASPIRIN 81 MG CHEW PO SCH (08:10)
[2017-11-02] MEDS: ATORVASTATIN 20 MG TAB PO SCH (08:11)
[2017-11-02] MEDS: CLOPIDOGREL BISULFATE 75 MG TAB PO SCH (08:11)
[2017-11-02] MEDS: CETIRIZINE HCL 10 MG TAB PO SCH (08:11)
[2017-11-02] MEDS: LISINOPRIL 10 MG TAB PO SCH (08:13)
[2017-11-02] MEDS ORDERED: ISONIAZID 300 MG TAB PO SCH (09:00)
[2017-11-02] MEDS ORDERED: PYRIDOXINE HCL 50 MG TAB PO SCH (09:00)
--- NOTE | 2017-11-02 14:49 | Family Medicine Progress Note ---
Progress Note Date of Service Nov 02, 2017. Subjective Pt evaluation today including: conversation w/ patient, physical exam, chart review, lab review Pt was seen and examined at bedside. HPI reviewed. Pt remembers being in alf and the last thing he remembers is waking up on the ground. Pt reiterates that ever since his discharge from [facility] he feels a doty of blood to the head approximately 30 min after taking Plavix. He states that the Plavix we give him doesn't make him feel like the blood is rushing to his head. Pt states that he has not felt lightheaded since his admission. Telemetry monitoring has shown sinus rhythm in the 70s and 80s. ROS: No chest pain, no SOB, no dyspnea on exertion, no palpitations, no fevers, no chills, no nausea, no vomiting, no diarrhea, no dysuria, no rash. Objective Physical Exam Notes: General Appearance: WD/WN, no apparent distress Head: normocephalic, atraumatic Eyes: normal inspection, sclerae normal Respiratory/Chest: normal breath sounds, no respiratory distress Cardiovascular: regular rate, rhythm, no edema Abdomen/GI: non tender, soft Extremities/Musculoskeletal: no calf tenderness, no pedal edema Neurologic/Psych: alert, normal mood/affect, oriented x 3 Skin: normal color, warm/dry Assessment and Plan 56M who was admitted for observation on 11/01 s/p syncopal episode. Attributes to the "new" meds that were started, specifically the Plavix they give him in the alf makes him feel like blood is rushing to his head. The Plavix he gets in the hospital doesn't make him feel that way. Asymptomatic since admission. Telemetry monitoring thus far has been negative. Syncope 2/2 unknown cause Pt reports feeling continually lightheaded after his cath on 10/22 - attributes to the Plavix he gets in alf. Spoke with our pharmacy team - we have generic Plavix (Clopidogrel) - [facility]" [facility] #[id number]. Spoke with [facility] - the Plavix they use is manufactured by [employer] and the [facility] # [place] [id number] Serial trops peaked at 0.017. No EKG changes or events on Tele. ECHO on last admission noted for 50-55% EF and areas of hypokinesis. Lipids and A1c (6.0) checked on last admission, will not repeat TSH, CBC, PRP WNL Orthostatics negative although BP has been low normal.. CAD Cath 3/6 s/p RCA stents x2 c/w ASA and Plavix and Lipitor. HTN Pt is on 10mg Lisinopril due to documented HTN. Consider holding Lisinopril on DC in light of pt's pressures and ethnicity. Will continue to monitor BPs. Prediabetes no home meds A1c 6.0 last admission Hyperlipidemia in the setting of recent [place] Continue Lipitor 40mg daily. Tobacco use has been tapering off Will hold on nicotine patch given pt is <2 weeks from NSTEMI Latent TB? c/w Isoniazid 900 Saturday and Saturday & Vit B6. Allergic Rhinitis Zyrtec 10mg daily Dispo: Current inmate. Diet: AHA DVT Proph: SCDs FULL CODE Resident Involvement: Resident Care Provided Care Provided: Adult Hospital Medicine Reviewed: Pt Seen/Exam by Me History no dizziness, palpitation Constitutional: denies: fever Respiratory: negative: short of breath Cardiovascular: denies chest pain General Appearance: no apparent distress Respiratory: lungs clear, no accessory muscle use Cardiovascular: regular rate, rhythm Neurologic/Psychiatric: alert, oriented x 3 Skin Characteristics: warm/dry Assessment/Plan Resident Physician Supervision Note: I independently interviewed and examined the patient and verified the reese history and physical, reviewed labs and image studies, discussed the case with the resident Dr. Cedillo and agree with the findings and care plan.
[2017-11-03 03:21] VITALS: BP 109/68; PULSE 93; TEMP 36.8; O2SAT 98
[2017-11-03] MEDS: LISINOPRIL 10 MG TAB PO SCH (07:58)
[2017-11-03] MEDS: CLOPIDOGREL BISULFATE 75 MG TAB PO SCH (07:58)
[2017-11-03] MEDS: ATORVASTATIN 20 MG TAB PO SCH (07:58)
[2017-11-03] MEDS: CETIRIZINE HCL 10 MG TAB PO SCH (07:58)
[2017-11-03 07:59] LABS: CALCIUM 8.7 mg/dl (8.5-10.1); CREATININE 1.25 mg/dl (0.60-1.40); POTASSIUM 4.3 mmol/L (3.5-5.1)
[2017-11-03] MEDS: ASPIRIN 81 MG CHEW PO SCH (07:59)
[2017-11-03 08:13] VITALS: BP 121/66; PULSE 88; TEMP 36.6; O2SAT 95
--- NOTE | 2017-11-03 10:25 | Discharge Instructions ---
Discharge Instructions Date of Service Nov 03, 2017. Admission Reason for Admission: Syncope Discharge Discharge Diagnosis / Problem: Syncope Discharge Goals Goal(s): Decrease discomfort Activity Recommendations Activity Limitations: per Instructions/Follow-up section . Instructions / Follow-Up Instructions / Follow-Up There were no abnormalities that were seen in your heart rhythm or heart enzymes while in the hospital. The CAT scan of your head was normal. This does not mean that you do not have an issues with your heart. Your last echocardiogram did show some "wall motion abnormalities". Sometimes the wall motion abnormalities can cause a rhythm problem with your heart. To determine if in fact you have a rhythm issue with your heart we recommend an event monitor for your heart. This can be arranged by the hospital physician or your regular dining room busser, Dr. Hoffman. You should follow up with Dr. Hoffman within 1-2 weeks regardless. We do not think your symptoms are from the Plavix medication. Please continue to take your regular medications as prescribed. Information regarding Plavix, Aspirin and Lipitor will be provided for your on discharge. So will information on syncope (falls). Please read this information carefully. Current Hospital Diet Patient's current hospital diet: AHA Diet (Heart Healthy) Discharge Diet Recommended Diet: AHA Diet (Heart Healthy) Pending Studies Studies pending at discharge: no Laboratory Results Hemoglobin A1c Test 10/18/17 22:53 Range/Units Estimated Average Glucose 126 mg/dl Hemoglobin A1c 6.0 H 4.5-5.6 % Lipid Panel Test 10/19/17 05:43 Range/Units Triglycerides Level 70 0-150 mg/dl Cholesterol Level 149 0-200 mg/dl HDL Cholesterol 31 mg/dl Cholesterol/HDL Ratio 4.8 LDL Cholesterol, Calculated 104 mg/dl Medical Emergencies . Who to Call and When: Medical Emergencies: If at any time you feel your situation is an emergency, please call 911 immediately. . Non-Emergent Contact Non-Emergency issues call your: Primary Care Provider, Casino Worker . . "Provider Documentation" section prepared by Fer Cedillo. . Resident Involvement: Resident Care Provided Care Provided: Adult Hospital Medicine
--- NOTE | 2017-11-03 10:35 | Discharge Summary ---
Discharge Summary Date of Service Nov 03, 2017. Discharge Summary Admission Date: Nov 01, 2017 at 12:43 Discharge Date: Nov 03, 2017 Discharge Disposition: Acute care facility ([facility]) Principal Diagnosis: Syncope Procedures: CT HEAD CT OF THE HEAD WITHOUT CONTRAST CLINICAL HISTORY: EVALUATE ALTERED MENTAL STATUS/WEAKNESS COMPARISON STUDY: No previous studies for comparison. CT DOSE: 844.54 mGycm TECHNIQUE: Helical axial images of the head were obtained without IV contrast. Automated exposure control was utilized for the study. A dose lowering technique was utilized adhering to the principles of ALARA. FINDINGS: No acute intracranial hemorrhage, midline shift or mass effect is present. Brain volume is normal. Ventricular system is normal. Basilar cisterns are patent. There are no extra-axial collections. Hernandez-white differentiation is maintained. There are no findings to suggest acute dural sinus thrombosis or acute territorial infarct. There are no significant calvarial abnormalities. Visualized portions of the sinuses and mastoid air cells are clear. IMPRESSION: No acute intracranial findings. EKG Normal sinus rhythm Possible Inferior infarct , age undetermined Abnormal ECG When compared with ECG of 02-NOV-2017 07:05, No significant change was found Confirmed by MODESTO COHEN ([id number]) on 11/03/2017 7:38:00 AM CHEST ONE VIEW PORTABLE CLINICAL HISTORY: Altered mental status. Weakness. COMPARISON STUDY: Chest radiograph October 18, 2017. FINDINGS: There is no pneumothorax or pleural effusion. Linear bibasilar opacities favor atelectasis. There is mild upper mediastinal widening. Cardiac size is normal. Pulmonary vascularity is normal. There is no consolidation to suggest pneumonia. IMPRESSION: 1. Linear bibasilar opacities which favor atelectasis. No acute cardiopulmonary findings. 2. Mild upper mediastinal widening. This is nonspecific but statistically due to mediastinal fat or pulmonary vessels. ECHOCARDIOGRAM FROM 10/19/17 * The left ventricle is normal in size. * There is mild concentric left ventricular hypertrophy. * Left ventricular systolic function is mildly reduced. * Ejection Fraction = 50-55%. * The mid to distal anterior and mid to distal anterolateral valdez and apical inferolateral valdez are hypokinetic. * The right ventricle is normal in size and function. * The right ventricular systolic function is normal as assessed by tricuspid annular plane systolic excursion (TAPSE) (normal >1.5 cm). * Dilated inferior vena cava with reduced collapsability with sniff indicates an elevated right atrial pressure of 15 mmHg * normal Left atrial pressures. * Normal PA pressures at 30 mm/hg Medication Reconciliation Continued Medications: Aspirin (Aspirin Chewable) 81 Mg Chew 81 MG PO DAILY Atorvastatin (Lipitor) 40 Mg Tab 40 MG PO DAILY, TAB Cetirizine (Zyrtec) 10 Mg Tab 10 MG PO DAILY, TAB Clopidogrel (Plavix) 75 Mg Tab 75 MG PO DAILY, TAB Isoniazid (Isoniazid) 300 Mg Tab 900 MG PO 2XWK TAKE 3 TABLETS (900mG) ORALLY WEEKLY ON SATURDAY AND SATURDAY Pyridoxine Hcl (Vitamin B 6) 50 Mg Tab 150 MG PO 2XWK TAKE 3 TABLETS (150MG) ON SATURDAY AND SATURDAY Discontinued Medications: Lisinopril (Zestril) 10 Mg Tab 10 MG PO DAILY, TAB Discharge Exam Pt was seen and examined at bedside. Please feels well and has had no symptoms are events in the hospital. Patient is eating well, tolerating PO intake, does not get lightheaded when she stands, has had no chest pain, no SOB, no dysuria, no fevers, no chills, no signs of infection. No events on telemetry monitoring. Pt has been in sinus rhythm. Physical Exam General Appearance: WD/WN, no apparent distress Head: normocephalic, atraumatic Eyes: normal inspection, sclerae normal Respiratory/Chest: normal breath sounds, no respiratory distress Cardiovascular: regular rate, rhythm, no edema Abdomen/GI: non tender, soft Extremities/Musculoskeletal: no calf tenderness, no pedal edema Neurologic/Psych: alert, normal mood/affect, oriented x 3 Skin: normal color, warm/dry Hospital Course Brief HPI: 56M who was admitted for observation on 11/01 s/p syncopal episode. Attributes to the "new" meds that were started after his cardiac catheterization approx two weeks ago. Specifically the Plavix they give him in the custodial makes him feel like blood is rushing to his head. Assessment / Plan: 1. Syncope 2/2 unknown cause Pt reports feeling continually lightheaded after his cath on 10/22/17 and 2 stents in the RCA. After that admission he was DC'ed on Lipitor, ASA and Plavix. After discussion with pharmacist, cloth grader and a brief literature review there was no evidence that Plavix can contribute to syncope. Confirmed Employment Service Specialist and Medication number with our pharmacy and the custodial's - and while they are not the same chief risk officer, it's extremely unlikely that the Plavix is the cause of the syncope. ECHO reviewed from last admission and there were areas of hypokinesis. This raises concern for a possible arrhythmia. As a result we recommend a outpatient event monitor. During this visit there were no cardiac events on telemetry (48hrs of monitoring). Patient reports to have seen Dr. Hoffman in the past and we can schedule that as outpatient. Patient's BP has been low to normal. He is on Lisinopril. We recommend holding the Lisinopril on discharge and follow up with blood pressures. Patient should continue ASA, Plavix and Lipitor on discharge as well as the home meds listed above. Total Time Spent: Greater than 30 minutes (33 min) This includes examination of the patient, discharge planning, medication reconciliation, and communication with other providers. Discharge Instructions Please refer to the electronic Patient Visit Report (Discharge Instructions) for additional information. Additional Copies To Ted Hoffman, DO; [facility] Resident Involvement: Resident Care Provided Care Provided: Adult Hospital Medicine Reviewed: Pt Seen/Exam by Me History no dizziness Constitutional: denies: fever Respiratory: negative: short of breath Cardiovascular: denies chest pain General Appearance: no apparent distress Respiratory: lungs clear, no respiratory distress Cardiovascular: regular rate, rhythm Gastrointestinal: soft Neurologic/Psychiatric: alert, oriented x 3 Skin Characteristics: warm/dry Assessment/Plan Resident Physician Supervision Note: I independently interviewed and examined the patient and verified the reese history and physical, reviewed labs and image studies, discussed the case with the resident Dr. Cedillo and agree with the findings and care plan.
[2017-11-03 11:21] VITALS: BP 121/66; PULSE 88; TEMP 36.6; O2SAT 95
== END 2017-11-03 12:54 ==
LOC: C.EDB 09:41 → C.EDINP 12:43 → EDBEDREQ 12:50 → ENRESERV 13:16 → C.2E 13:59
PROVIDERS: ADMIT Family Medicine; ATTEND Family Medicine
DX: R55 Syncope and collapse (principal); Z79.82 Long term (current) use of aspirin; I25.10 Atherosclerotic heart disease of native coronary artery without angina pectoris; I10 Essential (primary) hypertension; R73.03 Prediabetes; E78.5 Hyperlipidemia, unspecified; F17.210 Nicotine dependence, cigarettes, uncomplicated; J30.9 Allergic rhinitis, unspecified; E11.9 Type 2 diabetes mellitus without complications; I25.2 Old myocardial infarction